=== PATIENT | male | born 1960 | race Caucasian/White ===

== ENCOUNTER → 2019-02-10 17:52 | Outpatient (CLI) | payer MEDICARE, OTHER, SELFPAY ==
--- NOTE | 2019-02-10 18:54 | XR_ITS ---
PROCEDURE: XR CHEST 2V CLINICAL HISTORY: r/o TB COMPARISON: No exams were available for comparison FINDINGS: The cardiomediastinal silhouette and pulmonary vascularity are within normal limits. The right lung apex is clipped on the exam despite repeating the study. Calcified nodes are present in the left hilum. No cavitating process is evident. Nodular opacity noted in the right lower lung zone measures approximately 18 mm. The remaining lungs are clear. Mild thoracic scoliosis convex left. IMPRESSION: Old granulomatous disease. No active cavitating process is evident. 18 mm nodular opacity right lower lung zone. Possible developing pulmonary nodule. Consider chest CT for further evaluation Dictated by: Brad Ochoa MD 02/10/2019 21:51 Signed by: <Electronically signed by Brad Ochoa MD in [place]> 02/10/2019 21:51
== END ==
PROVIDERS: PCP Emergency Medicine; Visit Provider Emergency Medicine
DX: Z11.1 Encounter for screening for respiratory tuberculosis (principal)
CPT/HCPCS: 71046

== ENCOUNTER 2019-09-03 10:04 | Inpatient (IN) ==
--- NOTE | 2019-09-03 09:39 | Emergency Department Note ---
ED Disposition Clinical Impression: Hyperglycemia Bilateral pneumonia Qualifiers: Pneumonia type: due to unspecified organism Lung location: unspecified part of lung Qualified Code(s): J18.9 - Pneumonia, unspecified organism Respiratory failure with hypoxia Qualifiers: Chronicity: acute Qualified Code(s): J96.01 - Acute respiratory failure with hypoxia Sepsis Qualifiers: Sepsis type: sepsis due to unspecified organism Sepsis acute organ dysfunction status: with acute organ dysfunction Severe sepsis acute organ dysfunction type: acute respiratory failure Acute respiratory failure type: with hypoxia Severe sepsis shock status: without septic shock Qualified Code(s): A41.9 - Sepsis, unspecified organism; R65.20 - Severe sepsis without septic shock; J96.01 - Acute respiratory failure with hypoxia Disposition: Admitted As Inpatient Condition on Discharge: Serious Referrals: Matthew Aponte MD [Primary Care Provider] - - Critical Care Critical Care Time: Yes Attestation: On , the high probability of a clinically significant, sudden or life threatening deterioration of the following system(s) required my full and direct attention, intervention and personal management. The time I documented below is in addition to time spent performing reported procedures but includes the following listed in this critical care notation. Vital system(s) involved:: Respiratory Failure My critical care processes included: Assessment & monitoring of V/S, Initial and Re-exams, Data Review/Interpretation, Coordinating Care, Medication Orders and management, Documentation Medical Decision Making - John Inquiry Pt receiving controlled substance: No Vital Signs: 09/03/19 09:39 09/03/19 10:35 09/03/19 11:15 Temperature 98.2 F 102.6 F H Temperature Source Oral Rectal Pulse Rate [Left Radial] 96 H 109 H 100 H Respiratory Rate 18 20 Blood Pressure [Left Arm] 106/76 L 129/78 Blood Pressure Mean [Left Arm] 86 95 Blood Pressure Source [Left Arm] Manual Cuff/ Doppler Automatic Cuff Blood Pressure Position [Left Arm] Sitting Sitting 02 Sat by Pulse Oximetry 90 L 92 L 92 L Oxygen Delivery Method Room Air Nasal Cannula Nasal Cannula Oxygen Flow Rate (LPM) 2 2 - Lab Data Lab Results 09/03/19 10:05: WBC 11.2 H, RBC 6.00, Hgb 18.7 H*, Hct 56.3 H, MCV 93.9, MCH 31.1, MCHC 33.1, RDW 12.7, Plt Count 206, MPV 14.1 H, Neut % (Auto) 87.7 H, Lymph % (Auto) 7.9 L, [place] % (Auto) 3.8, Eos % (Auto) 0.2, Baso % (Auto) 0.3, Neut # (Auto) 9.8 H, Lymph # (Auto) 0.9, [place] # (Auto) 0.4, Eos # (Auto) 0.0, Baso # (Auto) 0.0, Total Counted 100, Neutrophils % (Manual) 89 H, Lymphocytes % (Manual) 8 L, Monocytes % (Manual) 3, Platelet Estimate Normal, Giant Platelets 1+, RBC Morphology Normal 09/03/19 10:05: Sodium 143, Potassium 3.8, Chloride 102, Carbon Dioxide 27, Anion Gap 17.8 H, BUN 25 H, Creatinine 1.00, Estimated Creat Clear 97, Estimated GFR 76, Est GFR ( Amer) 93, Glucose 222 H, Calcium 9.6, Total Bilirubin 1.5 H, AST 67 H, ALT 37, Alkaline Phosphatase 222 H, Troponin I 0.03, Total Protein 9.1 H, Albumin 4.2, Globulin 4.9 H, Albumin/Globulin Ratio 0.9 L 09/03/19 10:05: Lactate 3.7 H 09/03/19 10:05: Urine Opiates Screen Negative, Urine Methadone Screen Negative, Ur Barbituates Screen Negative, Ur Phencyclidine Scrn Negative, Ur Amphetamines Screen Negative, U Benzodiazepines Scrn Negative, Urine Cocaine Screen Negative, U Marijuana (THC) Screen Negative 09/03/19 10:11: Urine Color Ariella, Urine Appearance Cloudy, Urine pH 5.5, Ur Spe cific [place] >= 1.030, Urine Protein 2+, Urine Glucose (UA) Negative, Urine Ketones 1+, Urine Blood 2+, Urine Nitrate Positive, Urine Bilirubin Negative, Urine Urobilinogen >=8.0, Ur Leukocyte Esterase Negative, Urine RBC 5-10, Urine WBC 10-20, Ur Squamous Epith Cells 3-5, Urine Bacteria 1+ 09/03/19 10:14: Specimen Source R radial, O2 % Room air, ABG pH 7.70 H*, ABG pCO2 16.4 L, ABG pO2 50.6 L, ABG HCO3 19.9 L, ABG Total CO2 20.4 L, ABG O2 Satur ation 92, ABG Base Excess -0.1, Brad Test Acceptable Result diagrams: 09/03/19 10:05 09/03/19 10:05 Orders (Tests/Meds): ED MEDICATIONS Generic Name Dose Route Start Last Admin Trade Name Freq PRN Reason Stop Dose Admin Ceftriaxone Sodium 1 gm/ 50 mls @ 100 mls/hr 09/03/19 11:15 09/03/19 11:39 Sodium Chloride IV 09/17/19 11:14 100 mls/hr Q24H PRETTY Administration Protocol Azithromycin 500 mg/ Sodium 250 mls @ 250 mls/hr 09/03/19 11:15 Chloride IV 09/17/19 11:14 Q24H PRETTY Protocol Sodium Chloride 3 ml 09/03/19 11:11 Sodium Chloride 3% 15ml Neb IH 10/03/19 11:10 ONCE PRN INDUCE SPUTUM COLLECTION Discontinued Medications Generic Name Dose Route Start Last Admin Trade Name Freq PRN Reason Stop Dose Admin Sodium Chloride 1,000 ml 09/03/19 11:06 09/03/19 11:39 Sod Chlor 0.9% 1000ml Bag IV 09/03/19 11:07 1,000 ml BOLUS ONE Administration ORDERS Category Date Time Status Flu A&B Antigens, Rapid [Rapid Influenza A&B Antigens] Lab 09/03/19 10:15 Ordered Stat SARS-CoV-2, ANNA Stat Lab 09/03/19 11:25 Received Troponin I Q3H Lab 09/03/19 13:15 Ordered Troponin I Q3H Lab 09/03/19 16:15 Ordered Upper Respiratory Panel, PCR Stat Lab 09/03/19 11:25 Received Blood Culture Stat Micro 09/03/19 10:11 Received Sputum Culture & Gram Stain Stat Micro 09/03/19 11:11 Ordered Urine Culture Stat Micro 09/03/19 10:11 Received - ECG Data Tracing #1 EKG interpreted by Micah Villa MD: Rhythm: sinus Rate: 100 [place]: normal Ectopy: none Conduction: normal ST Segment Changes: none T Wave Changes: none Q Waves: none No evidence of acute ischemia or injury Significant baseline wander - Physician Consults Physician Consulted: Fadi Time: 11:42 Reason -: Admission Comment/Response: Agrees to admit the patient to the hospital. We discussed the patient's clinical information, including history, exam, laboratory and radiology results and ED course. Per hospital procedure, I will write temporary bridge inpatient orders on the patient. Specific orders requested by the admitting physician: Admit to negative pressure room. Continue antibiotics. Low intensity sliding scale. Continue oxygen. General Adult HPI - General Chief complaint: Shortness of Breath/Dyspnea Stated complaint: SOA, CONFUSION Time Seen by Provider: 09/03/19 10:10 - History of Present Illness HPI narrative: The patient is brought in by ambulance from [facility] with report of shortness of breath and confusion. The patient is a poor historian. He is oriented only to person, not place or time on arrival. He denies any complaints, says that he feels okay. Denies shortness of breath or any pain. Denies cough or fever. Denies vomiting or diarrhea. Denies ever being a smoker. - Related Data Allergies Allergy/AdvReac Type Severity Reaction Status Date / Time Unable to Assess Allergy Verified 02/10/19 16:44 [facility] History - Hepatitis A Screen Attestation statement:: This patient has been screened for Hepatitis A risk factors. I have reviewed the patient's past medical history: Yes ROS Obtained: Yes All systems reviewed & no additional complaints Appears to be unreliable - Constitutional Constitutional: Denies fever(s) - Cardiovascular Cardiovascular: Denies chest pain - Respiratory Respiratory: No cough, No dyspnea - Gastrointestinal Gastrointestingal: Denies: abdominal pain, diarrhea, vomiting Physical Exam - General General appearance: alert Comment: Appears dyspneic, although denying shortness of breath. When asked to sit up for exam, he moans when trying to sit up and is unable to sit up on his own. - Head Head exam: atraumatic, normocephalic - Eye Eye exam: Present: normal appearance, EOMI - ENT ENT exam: Present: mucous membranes moist - Neck Neck exam: Present: normal inspection, trachea midline - Chest Chest inspection: Present: normal inspection, symmetric chest wall rise - Respiratory Respiratory exam: Present: other (Crackles). Absent: wheezes - Cardiovascular Cardiovascular exam: Present: regular rate, normal rhythm, normal heart sounds - Abdominal Exam Abdominal exam: Present: soft. Absent: distention, tenderness - Extremities Exam Extremities exam: Present: normal inspection - Neurological Exam Neurological exam: Present: alert, CN II-XII intact. Absent: oriented X3, motor sensory deficit - Psychiatric Psychiatric exam: Present: normal affect, normal mood - Skin Skin exam: Present: warm, dry
[2019-09-03 10:25] LABS: Microscopic, Urine URINE MICROSCOPIC (MICROSCOPIC)
[2019-09-03 10:27] LABS: Basophils % 0.3 % (0.1-2.0); Eosinophils % 0.2 % (0.1-12.0); Lymphocytes # 0.9 K/mm3 (0.7-4.5); Neutrophils # 9.8 K/mm3 (1.8-7.8); Red Cell Distribution Width 12.7 % (11.5-17.5); White Blood Count 11.2 K/mm3 (4.8-10.8)
[2019-09-03 10:31] LABS: Albumin Level 4.2 g/dl (3.5-5.0); Albumin/Globulin Ratio 0.9 (1.1-1.8); Anion Gap 17.8 mEq/L (5-15); Bilirubin,Total 1.5 mg/dl (0.2-1.3); Calcium 9.6 mg/dl (8.4-10.2); Globulin 4.9 g/dL (1.3-3.2); Total Protein,Serum 9.1 g/dl (6.3-8.2)
[2019-09-03 10:31] LABS: Blood, Urine 2+ (Negative); Glucose,Urine (UA) Negative (Negative); Ketones,Urine 1+ (Negative); Leukocyte Esterase,Urine Negative (Negative); PH,Urine 5.5 (5.0-8.5); Protein,Urine 2+ (Negative); Specific Gravity, Urine >= 1.030 (1.005-1.030); Urobilinogen,Urine >=8.0 EU/dl (0.2)
[2019-09-03 10:37] LABS: Benzodiazepines Screen,Urine Negative ng/ml (<200)
[2019-09-03 10:38] LABS: Amphetamine/Metha Screen,Urine Negative ng/ml (<1000)
[2019-09-03 10:39] LABS: Barbiturates Screen,Urine Negative ng/ml (<200); Methadone Screen,Urine Negative ng/ml (<300)
[2019-09-03 10:40] LABS: Cannabinoid Screen,Urine Negative ng/ml (<50); Cocaine Screen,Urine Negative ng/ml (<300)
[2019-09-03 10:41] LABS: Phencyclidine Screen,Urine Negative ng/ml (<25)
[2019-09-03 10:42] LABS: Appearance,Urine Cloudy (Clear); Bilirubin,Urine Negative (Negative); Color,Urine Amber (Yellow)
[2019-09-03 10:42] LABS: Opiate Screen,Urine Negative ng/ml (<300)
[2019-09-03 10:46] LABS: Hematocrit 56.3 % (42.0-52.0); Lymphocytes % 7.9 % (10-50); Mean Corpuscular HGB Conc 33.1 g/dL (31.8-35.4); Mean Corpuscular Volume 93.9 fl (80-94); Mean Platelet Volume 14.1 fl (7.4-10.4); Monocytes # 0.4 K/mm3 (0.1-1.0); Monocytes % 3.8 % (1.7-9.3); Neutrophils % 87.7 % (37.0-80.0); Platelet Count 206 K/mm3 (142-424)
[2019-09-03 10:51] LABS: Hemoglobin 18.7 g/dL (14.1-18.0)
[2019-09-03 10:55] LABS: Bacteria,Urine 1+ /lpf
[2019-09-03 11:13] LABS: Lymphocytes % 8 % (10-50); Monocytes % 3 % (2-9); Neutrophils % 89 % (42-76); RBC Morphology Normal; Total Cells Counted 100
[2019-09-03 11:19] LABS: ABG Base Excess -0.1 mmol/L (-2.4-2.3); ABG HCO3 19.9 mmhg (22.0-26.0); ABG Oxygen Saturation 92 % (90-100); ABG PO2 50.6 mmhg (80-100); ABG TCO2 20.4 mmhg (23-27)
[2019-09-03 11:20] LABS: Allen's Test ACCEPTABLE; Oxygen ROOM AIR %
[2019-09-03 11:21] LABS: ABG PCO2 16.4 mmhg (35.0-45.0)
[2019-09-03 11:35] LABS: Coronavirus 229E Not Detected (NotDetected); Coronavirus NL63 Not Detected (NotDetected); Coronavirus OC43 Not Detected (NotDetected); Coronovirus HKU1,PCR Not Detected (NotDetected)
--- NOTE | 2019-09-03 13:03 | Pharmacy Consult Notes ---
[facility] Pharmacy VTE Monitoring - Patient Demographics Admission date: 09/03/19 Report Date: 09/03/19 Time: 13:02 Allergies/Adverse Reactions: Patient Allergies Unable to Assess Allergy (Verified 02/10/19 16:44) Height: 1.85 m Weight: 86.183 kg Patient Problems: Current Active Problems Bilateral pneumonia (Acute) Respiratory failure with hypoxia (Acute) Hyperglycemia (Acute) Sepsis (Acute) - VTE Risk Labs: VTE Related Lab Results Hgb 18.7 g/dL (14.1-18.0) H* 09/03/19 10:05 Hct 56.3 % (42.0-52.0) H 09/03/19 10:05 Plt Count 206 K/mm3 (142-424) 09/03/19 10:05 BUN 25 mg/dl (9-20) H 09/03/19 10:05 Creatinine 1.00 mg/dl (0.66-1.25) 09/03/19 10:05 Estimated Creat Clear 97 mL/min (50-200) 09/03/19 10:05 Clinical Trial Participant: No - Prophylaxis VTE Prophylaxis Ordered?: Yes Types of VTE Prophylaxis: TEDS Knee High
--- NOTE | 2019-09-03 19:43 | History & Physical Report ---
*Admission Date: 09/03/19 *Chief complaint: sob *History of present illness: this pt was sent from longterm for eval -he patient is brought in by ambulance from [facility] with report of shortness of breath and confusion. The patient is a poor historian. He is oriented only to person, not place or time on arrival. He denies any complaints, says that he feels okay. Denies shortness of breath or any pain. Denies cough or fever. Denies vomiting or diarrhea. Denies ever being a smoker. pt was found to have fever and cap and was admitted for ivf and abx - [facility] History I have reviewed the patient's past medical history: Yes Medical History: Denies:: Diabetes Mellitus Type 1, Diabetes Mellitus Type 2 *Have you ever received a pneumonia vaccine?: No *Have you received a flu vaccine this season?: Yes - *Social History Smoking Status: Never smoker Alcohol Intake: never *Occupational Status:: disabled Housing: assisted living facility *Travel in the last 8 weeks: None Family Hx:: Unable to obtain Review of Systems - Review of Systems Review of systems:: pertinent systems reviewed and negative unless documented below - Constitutional Reports fever(s), Reports weakness - Eyes Denies change in vision - ENT Denies sore throat - *Cardiovascular Reports shortness of breath, Denies chest pain at rest - *Respiratory Reports cough, Denies coughing up blood - *Gastrointestinal Denies abdominal pain - *Genitourinary Denies blood in urine - *Musculoskeletal Denies joint pain, Denies limited joint movement - Integumentary/Breasts Denies rash - *Neurologic Denies seizure-like activity, Denies localized weakness, Denies headache(s), Denies tingling/numbness/burning sensations - Psychiatric Denies anxiety Meds Home Medications Medication Instructions Recorded Confirmed Type No Known Home Medications 09/03/19 09/03/19 History Allergies Allergy/AdvReac Type Severity Reaction Status Date / Time No Known Allergies Allergy Verified 09/03/19 13:35 Exam Vital signs and Labs for Last 24 Hours: Temp Pulse Resp BP Pulse Ox 98.0 F 74 18 120/63 93 L 09/03/19 13:10 09/03/19 16:00 09/03/19 16:00 09/03/19 16:00 09/03/19 16:00 Laboratory Results - last 24 hr 09/03/19 10:05: WBC 11.2 H, RBC 6.00, Hgb 18.7 H*, Hct 56.3 H, MCV 93.9, MCH 31.1, MCHC 33.1, RDW 12.7, Plt Count 206, MPV 14.1 H, Neut % (Auto) 87.7 H, Lymph % (Auto) 7.9 L, [place] % (Auto) 3.8, Eos % (Auto) 0.2, Baso % (Auto) 0.3, Neut # (Auto) 9.8 H, Lymph # (Auto) 0.9, [place] # (Auto) 0.4, Eos # (Auto) 0.0, Baso # (Auto) 0.0, Total Counted 100, Neutrophils % (Manual) 89 H, Lymphocytes % (Manual) 8 L, Monocytes % (Manual) 3, Platelet Estimate Normal, Giant Platelets 1+, RBC Morphology Normal 09/03/19 10:05: Sodium 143, Potassium 3.8, Chloride 102, Carbon Dioxide 27, Anion Gap 17.8 H, BUN 25 H, Creatinine 1.00, Estimated Creat Clear 97, Estimated GFR 76, Est GFR ( Amer) 93, Glucose 222 H, Calcium 9.6, Total Bilirubin 1.5 H, AST 67 H, ALT 37, Alkaline Phosphatase 222 H, Troponin I 0.03, Total Protein 9.1 H, Albumin 4.2, Globulin 4.9 H, Albumin/Globulin Ratio 0.9 L 09/03/19 10:05: Lactate 3.7 H 09/03/19 10:05: Urine Opiates Screen Negative, Urine Methadone Screen Negative, Ur Barbituates Screen Negative, Ur Phencyclidine Scrn Negative, Ur Amphetamines Screen Negative, U Benzodiazepines Scrn Negative, Urine Cocaine Screen Negative, U Marijuana (THC) Screen Negative 09/03/19 10:11: Urine Color Ariella, Urine Appearance Cloudy, Urine pH 5.5, Ur Specific [place] >= 1.030, Urine Protein 2+, Urine Glucose (UA) Negative, Urine Ketones 1+, Urine Blood 2+, Urine Nitrate Positive, Urine Bilirubin Negative, Urine Urobilinogen >=8.0, Ur Leukocyte Esterase Negative, Urine RBC 5-10, Urine WBC 10-20, Ur Squamous Epith Cells 3-5, Urine Bacteria 1+ 09/03/19 10:14: Specimen Source R radial, O2 % Room air, ABG pH 7.70 H*, ABG pCO2 16.4 L, ABG pO2 50.6 L, ABG HCO3 19.9 L, ABG Total CO2 20.4 L, ABG O2 Saturation 92, ABG Base Excess -0.1, Brad Test Acceptable 09/03/19 11:25: Chlamy pneumoniae PCR Not detected, Adenovirus (PCR) Not detected, B. pertussis DNA (PCR) Not detected, Coronavirus OC43 (PCR) Not detected, Coronavirus HKU1 (PCR) Not detected, Coronavirus 229E (PCR) Not detected, Coronavirus NL63 (PCR) Not detected, Human Metapneumovir PCR Not detected, Influenza A (H1) PCR Not detected, Influ A (H1N1/09) PCR Not detected, Influenza A (H3) PCR Not detected, Influenza Type A (PCR) Not detected, Influenza Type B (PCR) Not detected, M. pneumoniae (PCR) Not detected, Parainfluenza 1 (PCR) Not detected, Parainfluenza 2 (PCR) Not detected, Parainfluenza 3 (PCR) Not detected, Parainfluenza 4 (PCR) Not detected, RSV (PCR) Not detected, Entero/Rhino (PCR) Not detected 09/03/19 14:53: Lactate 1.2 09/03/19 16:44: POC Glucose 122 H I & O for Last 24 hours: Intake & Output 09/01/19 09/02/19 09/03/19 09/04/19 11:59 11:59 11:59 11:59 Intake Total 360 / 360 Balance 360 / 360 Weight 190 lb 202 lb 6.4 oz - Constitutional no acute distress - *Routine HEENT Exam Head: Present: normocephalic Eye: Present: EOMI, PERRL. Absent: conjunctival icterus ENT: Present: mucous membranes dry - *Routine Neck Exam Present: supple. Absent: JVD - *Routine Respiratory Exam Present: CTA bilaterally - *Routine Cardiovascular Exam Present: RRR, murmur - *Routine Abdominal Exam Present: soft - *Routine Extremities Exam Absent: full ROM - *Routine Skin Exam Present: intact - *Routine Neurological Exam Present: alert. Absent: CN II-XII intact - Routine Psychiatric Exam Present: normal affect Assessment and Plan (1) SIRS (systemic inflammatory response syndrome) Current visit: Yes Status: Acute Category: Medical Code(s): R65.10 - Systemic inflammatory response syndrome (SIRS) of non-infectious origin without acute organ dysfunction (2) Bilateral pneumonia Current visit: Yes Status: Acute Qualifiers: Pneumonia type: due to unspecified organism Lung location: unspecified part of lung Qualified Code(s): J18.9 - Pneumonia, unspecified organism Category: Medical Code(s): J18.9 - Pneumonia, unspecified organism (3) Respiratory failure with hypoxia Current visit: Yes Status: Acute Qualifiers: Chronicity: acute Qualified Code(s): J96.01 - Acute respiratory failure wit h hypoxia Category: Medical Code(s): J96.91 - Respiratory failure, unspecified with hypoxia (4) UTI (urinary tract infection) Current visit: Yes Status: Acute Qualifiers: Urinary tract infection type: site unspecified Hematuria presence: without hematuria Qualified Code(s): N39.0 - Urinary tract infection, site not specified Category: Medical Code(s): N39.0 - Urinary tract infection, site not specified
--- NOTE | 2019-09-04 09:46 | Progress Note ---
Internal Medicine - PN: Eloise *Date: 09/04/19 *Time: 09:43 Interval history: pt eating breakfast, asking when he can go home because he misses his brother. Exam Vital signs and Labs for Last 24 Hours: Temp Pulse Resp BP Pulse Ox 98.7 F 56 L 15 165/94 H 90 L 09/04/19 08:00 09/04/19 08:00 09/04/19 08:00 09/04/19 08:00 09/04/19 08:00 Laboratory Results - last 24 hr 09/03/19 10:05: WBC 11.2 H, RBC 6.00, Hgb 18.7 H*, Hct 56.3 H, MCV 93.9, MCH 31.1, MCHC 33.1, RDW 12.7, Plt Count 206, MPV 14.1 H, Neut % (Auto) 87.7 H, Lymph % (Auto) 7.9 L, [place] % (Auto) 3.8, Eos % (Auto) 0.2, Baso % (Auto) 0.3, Neut # (Auto) 9.8 H, Lymph # (Auto) 0.9, [place] # (Auto) 0.4, Eos # (Auto) 0.0, Baso # (Auto) 0.0, Total Counted 100, Neutrophils % (Manual) 89 H, Lymphocytes % (Manual) 8 L, Monocytes % (Manual) 3, Platelet Estimate Normal, Giant Platelets 1+, RBC Morphology Normal 09/03/19 10:05: Sodium 143, Potassium 3.8, Chloride 102, Carbon Dioxide 27, Anion Gap 17.8 H, BUN 25 H, Creatinine 1.00, Estimated Creat Clear 97, Estimated GFR 76, Est GFR ( Amer) 93, Glucose 222 H, Calcium 9.6, Total Bilirubin 1.5 H, AST 67 H, ALT 37, Alkaline Phosphatase 222 H, Troponin I 0.03, Total Protein 9.1 H, Albumin 4.2, Globulin 4.9 H, Albumin/Globulin Ratio 0.9 L 09/03/19 10:05: Lactate 3.7 H 09/03/19 10:05: Urine Opiates Screen Negative, Urine Methadone Screen Negative, Ur Barbituates Screen Negative, Ur Phencyclidine Scrn Negative, Ur Amphetamines Screen Negative, U Benzodiazepines Scrn Negative, Urine Cocaine Screen Negative, U Marijuana (THC) Screen Negative 09/03/19 10:11: Urine Color Ariella, Urine Appearance Cloudy, Urine pH 5.5, Ur Specific [place] >= 1.030, Urine Protein 2+, Urine Glucose (UA) Negative, Urine Ketones 1+, Urine Blood 2+, Urine Nitrate Positive, Urine Bilirubin Negative, Urine Urobilinogen >=8.0, Ur Leukocyte Esterase Negative, Urine RBC 5-10, Urine WBC 10-20, Ur Squamous Epith Cells 3-5, Urine Bacteria 1+ 09/03/19 10:14: Specimen Source R radial, O2 % Room air, ABG pH 7.70 H*, ABG pCO2 16.4 L, ABG pO2 50.6 L, ABG HCO3 19.9 L, ABG Total CO2 20.4 L, ABG O2 Saturation 92, ABG Base Excess -0.1, Brad Test Acceptable 09/03/19 11:25: Chlamy pneumoniae PCR Not detected, Adenovirus (PCR) Not detected, B. pertussis DNA (PCR) Not detected, Coronavirus OC43 (PCR) Not detected, Coronavirus HKU1 (PCR) Not detected, Coronavirus 229E (PCR) Not detected, Coronavirus NL63 (PCR) Not detected, Human Metapneumovir PCR Not detected, Influenza A (H1) PCR Not detected, Influ A (H1N1/09) PCR Not detected, Influenza A (H3) PCR Not detected, Influenza Type A (PCR) Not detected, Influenza Type B (PCR) Not detected, M. pneumoniae (PCR) Not detected, Parainfluenza 1 (PCR) Not detected, Parainfluenza 2 (PCR) Not detected, Parainfluenza 3 (PCR) Not detected, Parainfluenza 4 (PCR) Not detected, RSV (PCR) Not detected, Entero/Rhino (PCR) Not detected 09/03/19 14:53: Lactate 1.2 09/03/19 16:44: POC Glucose 122 H 09/03/19 21:02: POC Glucose 154 H I & O for Last 24 hours: Intake & Output 09/01/19 09/02/19 09/03/19 09/04/19 11:59 11:59 11:59 11:59 Intake Total 1680 / 1680 Output Total 100 / 100 Balance 1580 / 1580 Weight 190 lb 202 lb 6.4 oz - Constitutional no acute distress - *Routine HEENT Exam Head: Present: normocephalic Eye: Present: PERRL ENT: Present: mucous membranes moist - *Routine Neck Exam Present: supple. Absent: lymphadenopathy - *Routine Respiratory Exam Present: decreased breath sounds, rhonchi - *Routine Cardiovascular Exam Present: RRR - *Routine Abdominal Exam Present: soft, normoactive bowel sounds. Absent: tenderness - *Routine Extremities Exam Present: normal capillary refill. Absent: cyanosis, clubbing, edema - *Routine Skin Exam Present: warm. Absent: rash - *Routine Neurological Exam Present: alert, oriented X3 - Routine Psychiatric Exam Present: normal affect Assessment and Plan (1) Bilateral pneumonia Current visit: Yes Status: Acute Qualifiers: Pneumonia type: due to unspecified organism Lung location: unspecified part of lung Qualified Code(s): J18.9 - Pneumonia, unspecified organism Category: Medical Code(s): J18.9 - Pneumonia, unspecified organism - Assessment and plan all Dx Assessment and Plan for all problems:: rounded with dr bermudez all orders per lara wait covid-19 results iv antibiotics
--- NOTE | 2019-09-04 21:21 | Electrocardiograph Report ---
APPROVED REPORT Exam: Resting ECG HR:100 bpm ECG Measurements Heart Rate 100 AXES [place] 130 P 20 QRSd 88 QRS -21 QT 392 T-19 QTc 505 <Conclusion> Normal sinus rhythm Nonspecific ST abnormality Prolonged QT Abnormal ECG Electronically signed by : Chu Bradley, 09/04/2019 21:20:42
--- NOTE | 2019-09-05 09:41 | Progress Note ---
Internal Medicine - PN: Subj *Date: 09/06/19 *Time: 08:16 Interval history: doing better - neg covid-19 - Exam Vital signs and Labs for Last 24 Hours: Temp Pulse Resp BP Pulse Ox 98.0 F 71 16 99/59 L 91 L 09/05/19 08:00 09/05/19 08:00 09/05/19 08:00 09/05/19 08:00 09/05/19 08:00 Laboratory Results - last 24 hr 09/03/19 11:25: COVID-19 (ANNA) Not detected 09/04/19 05:32: POC Glucose 116 H 09/04/19 11:12: POC Glucose 111 H 09/04/19 16:16: POC Glucose 93 09/04/19 19:57: POC Glucose 96 09/05/19 05:52: POC Glucose 112 H I & O for Last 24 hours: Intake & Output 09/02/19 09/03/19 09/04/19 09/05/19 11:59 11:59 11:59 11:59 Intake Total 1680 / 1680 3167 / 3167 Output Total 100 / 100 Balance 1580 / 1580 3167 / 3167 Weight 190 lb 202 lb 6.4 oz 205 lb Microbiology Reports for the Last 24 Hours: Microbiology 09/03/19 10:11 Urine,Catheterized Urine Culture - Preliminary NO GROWTH AFTER 24 HOURS - Constitutional no acute distress - *Routine HEENT Exam Head: Present: normocephalic Eye: Present: EOMI, PERRL ENT: Present: mucous membranes dry - *Routine Neck Exam Present: supple - *Routine Respiratory Exam Present: CTA bilaterally - *Routine Cardiovascular Exam Present: RRR, murmur - *Routine Abdominal Exam Present: soft - *Routine Extremities Exam Present: pulses intact - *Routine Skin Exam Present: intact - *Routine Neurological Exam Present: alert, CN II-XII intact - Routine Psychiatric Exam Present: normal affect Assessment and Plan (1) SIRS (systemic inflammatory response syndrome) Current visit: Yes Status: Acute Category: Medical Code(s): R65.10 - Systemic inflammatory response syndrome (SIRS) of non-infectious origin without acute organ dysfunction (2) Bilateral pneumonia Current visit: Yes Status: Acute Qualifiers: Pneumonia type: due to unspecified organism Lung location: unspecified part of lung Qualified Code(s): J18.9 - Pneumonia, unspecified organism Category: Medical Code(s): J18.9 - Pneumonia, unspecified organism (3) Respiratory failure with hypoxia Current visit: Yes Status: Acute Qualifiers: Chronicity: acute Qualified Code(s): J96.01 - Acute respiratory failure with hypoxia Category: Medical Code(s): J96.91 - Respiratory failure, unspecified with hypoxia (4) UTI (urinary tract infection) Current visit: Yes Status: Acute Qualifiers: Urinary tract infection type: site unspecified Hematuria presence: without hematuria Qualified Code(s): N39.0 - Urinary tract infection, site not specified Category: Medical Code(s): N39.0 - Urinary tract infection, site not specified
[2019-09-05 11:43] LABS: Basophils % 0.3 % (0.1-2.0); Eosinophils % 0.2 % (0.1-12.0); Hematocrit 46.5 % (42.0-52.0); Hemoglobin 15.3 g/dL (14.1-18.0); Lymphocytes # 0.8 K/mm3 (0.7-4.5); Lymphocytes % 5.5 % (10-50); Mean Corpuscular Volume 94.3 fl (80-94); Mean Platelet Volume 13.5 fl (7.4-10.4); Monocytes # 0.8 K/mm3 (0.1-1.0); Monocytes % 5.6 % (1.7-9.3); Neutrophils % 88.4 % (37.0-80.0); Platelet Count 185 K/mm3 (142-424); Red Blood Count 4.92 M/mm3 (4.60-6.20); Red Cell Distribution Width 12.9 % (11.5-17.5); White Blood Count 13.6 K/mm3 (4.8-10.8)
[2019-09-05 11:46] LABS: Anion Gap 8.2 mEq/L (5-15)
[2019-09-05 11:57] LABS: Calcium 7.9 mg/dl (8.4-10.2)
[2019-09-05 14:16] LABS: Lymphocytes % 5 % (10-50); Monocytes % 4 % (2-9); Neutrophils % 91 % (42-76); RBC Morphology Normal; Total Cells Counted 100
--- NOTE | 2019-09-06 09:02 | Progress Note ---
Internal Medicine - PN: Subj *Date: 09/07/19 *Time: 07:43 Interval history: doing better but on o2 - pt with no specific c/o Exam Vital signs and Labs for Last 24 Hours: Temp Pulse Resp BP Pulse Ox 99.4 F 83 28 H 124/41 L 83 L 09/06/19 07:43 09/06/19 07:43 09/06/19 07:43 09/06/19 07:43 09/06/19 07:43 Laboratory Results - last 24 hr 09/05/19 11:05: WBC 13.6 H, RBC 4.92, Hgb 15.3, Hct 46.5, MCV 94.3 H, MCH 31.2, MCHC 33.0, RDW 12.9, Plt Count 185, MPV 13.5 H, Neut % (Auto) 88.4 H, Lymph % (Auto) 5.5 L, [place] % (Auto) 5.6, Eos % (Auto) 0.2, Baso % (Auto) 0.3, Neut # (Auto) 12.0 H, Lymph # (Auto) 0.8, [place] # (Auto) 0.8, Eos # (Auto) 0.0, Baso # (Auto) 0.0, Total Counted 100, Neutrophils % (Manual) 91 H, Lymphocytes % (Manual) 5 L, Monocytes % (Manual) 4, Platelet Estimate Normal, RBC Morphology Normal 09/05/19 11:05: Sodium 141, Potassium 3.2 L, Chloride 107, Carbon Dioxide 29, Anion Gap 8.2, BUN 11 D, Creatinine 0.50 L D, Estimated Creat Clear 209, Estimated GFR 170, Est GFR ( Amer) 206 D, Glucose 170 H, Calcium 7.9 L D 09/05/19 11:48: POC Glucose 188 H 09/05/19 16:47: POC Glucose 92 09/05/19 21:08: POC Glucose 184 H 09/06/19 05:58: POC Glucose 114 H I & O for Last 24 hours: Intake & Output 09/03/19 09/04/19 09/05/19 09/06/19 11:59 11:59 11:59 11:59 Intake Total 1680 / 1680 3167 / 3167 1656 / 1656 Output Total 100 / 100 300 / 300 Balance 1580 / 1580 3167 / 3167 1356 / 1356 Weight 190 lb 202 lb 6.4 oz 205 lb 212 lb 3 oz Microbiology Reports for the Last 24 Hours: Microbiology 09/03/19 10:11 Blood Blood Culture - Preliminary NO GROWTH AFTER 48 HOURS 09/03/19 10:11 Urine,Catheterized Urine Culture - Final NO GROWTH AFTER 48 HOURS 09/03/19 10:11 Blood Blood Culture - Preliminary NO GROWTH AFTER 48 HOURS - Constitutional no acute distress - *Routine HEENT Exam Head: Present: normocephalic Eye: Present: EOMI, PERRL ENT: Present: mucous membranes dry - *Routine Neck Exam Present: supple. Absent: JVD - *Routine Respiratory Exam Present: decreased breath sounds - *Routine Cardiovascular Exam Present: RRR - *Routine Abdominal Exam Present: soft - *Routine Extremities Exam Present: full ROM - *Routine Skin Exam Present: intact - *Routine Neurological Exam Present: alert - Routine Psychiatric Exam Absent: depressed Assessment and Plan (1) SIRS (systemic inflammatory response syndrome) Current visit: Yes Status: Acute Category: Medical Code(s): R65.10 - Systemic inflammatory response syndrome (SIRS) of non-infectious origin without acute organ dysfunction (2) Bilateral pneumonia Current visit: Yes Status: Acute Qualifiers: Pneumonia type: due to unspecified organism Lung location: unspecified part of lung Qualified Code(s): J18.9 - Pneumonia, unspecified organism Category: Medical Code(s): J18.9 - Pneumonia, unspecified organism (3) Respiratory failure with hypoxia Current visit: Yes Status: Acute Qualifiers: Chronicity: acute Qualified Code(s): J96.01 - Acute respiratory failure with hypoxia Category: Medical Code(s): J96.91 - Respiratory failure, unspecified with hypoxia (4) UTI (urinary tract infection) Current visit: Yes Status: Acute Qualifiers: Urinary tract infection type: site unspecified Hematuria presence: without hematuria Qualified Code(s): N39.0 - Urinary tract infection, site not specified Category: Medical Code(s): N39.0 - Urinary tract infection, site not specified
--- NOTE | 2019-09-06 10:07 | Progress Note ---
Internal Medicine - PN: Subj *Date: 09/06/19 *Time: 10:07 Exam Vital signs and Labs for Last 24 Hours: Temp Pulse Resp BP Pulse Ox 99.4 F 78 28 H 124/41 L 83 L 09/06/19 07:43 09/06/19 09:58 09/06/19 07:43 09/06/19 07:43 09/06/19 07:43 Laboratory Results - last 24 hr 09/05/19 11:05: WBC 13.6 H, RBC 4.92, Hgb 15.3, Hct 46.5, MCV 94.3 H, MCH 31.2, MCHC 33.0, RDW 12.9, Plt Count 185, MPV 13.5 H, Neut % (Auto) 88.4 H, Lymph % (Auto) 5.5 L, [place] % (Auto) 5.6, Eos % (Auto) 0.2, Baso % (Auto) 0.3, Neut # (Auto) 12.0 H, Lymph # (Auto) 0.8, [place] # (Auto) 0.8, Eos # (Auto) 0.0, Baso # (Auto) 0.0, Total Counted 100, Neutrophils % (Manual) 91 H, Lymphocytes % (Manual) 5 L, Monocytes % (Manual) 4, Platelet Estimate Normal, RBC Morphology Normal 09/05/19 11:05: Sodium 141, Potassium 3.2 L, Chloride 107, Carbon Dioxide 29, Anion Gap 8.2, BUN 11 D, Creatinine 0.50 L D, Estimated Creat Clear 209, Estimated GFR 170, Est GFR ( Amer) 206 D, Glucose 170 H, Calcium 7.9 L D 09/05/19 11:48: POC Glucose 188 H 09/05/19 16:47: POC Glucose 92 09/05/19 21:08: POC Glucose 184 H 09/06/19 05:58: POC Glucose 114 H I & O for Last 24 hours: Intake & Output 09/03/19 09/04/19 09/05/19 09/06/19 23:59 23:59 23:59 23:59 Intake Total 360 / 360 2826 / 2826 2568 / 2568 869 / 869 Output Total 100 / 100 300 / 300 Balance 360 / 360 2726 / 2726 2568 / 2568 569 / 569 Weight 91.807 kg 92.986 kg 96.247 kg Microbiology Reports for the Last 24 Hours: Microbiology 09/03/19 10:11 Blood Blood Culture - Preliminary NO GROWTH AFTER 48 HOURS 09/03/19 10:11 Urine,Catheterized Urine Culture - Final NO GROWTH AFTER 48 HOURS 09/03/19 10:11 Blood Blood Culture - Preliminary NO GROWTH AFTER 48 HOURS Assessment and Plan (1) SIRS (systemic inflammatory response syndrome) Current visit: Yes Status: Acute Category: Medical Code(s): R65.10 - Systemic inflammatory response syndrome (SIRS) of non-infectious origin without acute organ dysfunction (2) Bilateral pneumonia Current visit: Yes Status: Acute Qualifiers: Pneumonia type: due to unspecified organism Lung location: unspecified part of lung Qualified Code(s): J18.9 - Pneumonia, unspecified organism Category: Medical Code(s): J18.9 - Pneumonia, unspecified organism (3) Respiratory failure with hypoxia Current visit: Yes Status: Acute Qualifiers: Chronicity: acute Qualified Code(s): J96.01 - Acute respiratory failure with hypoxia Category: Medical Code(s): J96.91 - Respiratory failure, unspecified with hypoxia (4) UTI (urinary tract infection) Current visit: Yes Status: Acute Qualifiers: Urinary tract infection type: site unspecified Hematuria presence: without hematuria Qualified Code(s): N39.0 - Urinary tract infection, site not specified Category: Medical Code(s): N39.0 - Urinary tract infection, site not specified The patient's infection will respond to the chosen ABx?: Yes Is the patient receiving the right drug, dose, and route?: Yes Could a more targeted ABx be ordered?: No
--- NOTE | 2019-09-07 08:49 | Progress Note ---
Internal Medicine - PN: Subj *Date: 09/07/19 *Time: 08:44 Interval history: Patient sitting up in chair states he feels a okay Exam Vital signs and Labs for Last 24 Hours: Temp Pulse Resp BP Pulse Ox 97.8 F 105 H 18 139/75 90 L 09/07/19 08:00 09/07/19 08:00 09/07/19 08:00 09/07/19 08:00 09/07/19 08:00 Laboratory Results - last 24 hr 09/06/19 11:21: POC Glucose 178 H 09/06/19 16:01: POC Glucose 251 H 09/06/19 21:35: POC Glucose 263 H 09/07/19 05:47: POC Glucose 209 H I & O for Last 24 hours: Intake & Output 09/04/19 09/05/19 09/06/19 09/07/19 11:59 11:59 11:59 11:59 Intake Total 1680 / 1680 3167 / 3167 1776 / 1776 2084 / 2084 Output Total 100 / 100 300 / 300 350 / 350 Balance 1580 / 1580 3167 / 3167 1476 / 1476 1734 / 1734 Weight 202 lb 6.4 oz 205 lb 212 lb 3 oz 209 lb 10.554 oz - Constitutional no acute distress, chronically ill appearing - *Routine HEENT Exam Head: Present: normocephalic Eye: Present: PERRL ENT: Present: mucous membranes moist - *Routine Neck Exam Present: supple. Absent: lymphadenopathy - *Routine Respiratory Exam Present: rhonchi - *Routine Cardiovascular Exam Present: RRR - *Routine Abdominal Exam Present: soft, normoactive bowel sounds. Absent: tenderness - *Routine Extremities Exam Present: full ROM, normal capillary refill. Absent: cyanosis, clubbing, edema - *Routine Skin Exam Present: warm. Absent: rash - *Routine Neurological Exam Present: alert - Routine Psychiatric Exam Present: normal affect Assessment and Plan (1) SIRS (systemic inflammatory response syndrome) Current visit: Yes Status: Acute Category: Medical Code(s): R65.10 - Systemic inflammatory response syndrome (SIRS) of non-infectious origin without acute organ dysfunction (2) Bilateral pneumonia Current visit: Yes Status: Acute Qualifiers: Pneumonia type: due to unspecified organism Lung location: unspecified part of lung Qualified Code(s): J18.9 - Pneumonia, unspecified organism Category: Medical Code(s): J18.9 - Pneumonia, unspecified organism (3) Respiratory failure with hypoxia Current visit: Yes Status: Acute Qualifiers: Chronicity: acute Qualified Code(s): J96.01 - Acute respiratory failure with hypoxia Category: Medical Code(s): J96.91 - Respiratory failure, unspecified with hypoxia (4) UTI (urinary tract infection) Current visit: Yes Status: Acute Qualifiers: Urinary tract infection type: site unspecified Hematuria presence: without hematuria Qualified Code(s): N39.0 - Urinary tract infection, site not specified Category: Medical Code(s): N39.0 - Urinary tract infection, site not specified - Assessment and plan all Dx Assessment and Plan for all problems:: Try to wean off O2 and possibly transfer back to [facility] Look at possible rehab to help with strength patient has unsteady gait
[2019-09-07 09:33] LABS: Basophils % 0.1 % (0.1-2.0); Eosinophils % 0.1 % (0.1-12.0); Hematocrit 46.1 % (42.0-52.0); Hemoglobin 15.1 g/dL (14.1-18.0); Lymphocytes # 0.7 K/mm3 (0.7-4.5); Lymphocytes % 4.4 % (10-50); Mean Corpuscular HGB Conc 32.7 g/dL (31.8-35.4); Mean Corpuscular Volume 92.7 fl (80-94); Mean Platelet Volume 12.9 fl (7.4-10.4); Monocytes # 0.6 K/mm3 (0.1-1.0); Monocytes % 3.5 % (1.7-9.3); Neutrophils # 14.4 K/mm3 (1.8-7.8); Neutrophils % 91.8 % (37.0-80.0); Platelet Count 261 K/mm3 (142-424); Red Blood Count 4.97 M/mm3 (4.60-6.20); White Blood Count 15.6 K/mm3 (4.8-10.8)
[2019-09-07 09:37] LABS: Anion Gap 14.9 mEq/L (5-15); Calcium 7.7 mg/dl (8.4-10.2)
[2019-09-07 12:05] LABS: Monocytes % 3 % (2-9); RBC Morphology Normal; Total Cells Counted 100
[2019-09-07 12:09] LABS: Lymphocytes % 6 % (10-50); Neutrophils % 91 % (42-76)
--- NOTE | 2019-09-08 09:23 | Discharge Summary ---
General - General Admission date:: 09/03/19 Discharge date: 09/08/19 HPI HPI: 58-year-old male patient lying in bed oxygen on at 2 L per nasal cannula. Discussed discharge to extended care facility for PT/OT today, explained eventually may be able to return to [facility] this pt was sent from [facility] for eval -he patient is brought in by ambulance from [facility] with report of shortness of breath and confusion. The patient is a poor historian. He is oriented only to person, not place or time on arrival. He denies any complaints, says that he feels okay. Denies shortness of breath or any pain. Denies cough or fever. Denies vomiting or diarrhea. Denies ever being a smoker. pt was found to have fever and cap and was admitted for ivf and abx - Hospital Course Hospital Course: this pt was sent from [facility] for eval -he patient is brought in by ambulance from [facility] with report of shortness of breath and confusion. The patient is a poor historian. He is oriented only to person, not place or time on arrival. He denies any complaints, says that he feels okay. Denies shortness of breath or any pain. Denies cough or fever. Denies vomiting or diarrhea. Denies ever being a smoker. pt was found to have fever and cap and was admitted for ivf and abx (Per Dr. Aponte) 09/03/[address]: IMPRESSION: No acute intracranial finding Dictated by: Dr. Ochoa 09/03/19 CXR: IMPRESSION: Patchy bilateral areas of alveolar opacification consistent with bilateral pneumonia and could be viral or bacterial Dictated by: Dr. Ochoa, During his stay he has had negative blood cultures x2 and negative urine culture. Respiratory viral panel has been negative as well as COVID-19, potassium was 2.9, he did receive 20 mg potassium IV. He is currently on oxygen at 2 L per nasal cannula, he has been checked on room air sats were mid to high 80s on 2 L per NC he is 93 to 95% oxygen sat He will be discharged to an extended care facility with PT/OT, oxygen, and PO antibiotics Objective Vital signs: Temp Pulse Resp BP Pulse Ox 97.5 F L 91 H 18 141/82 H 87 L 09/08/19 07:43 09/08/19 07:43 09/08/19 07:43 09/08/19 07:43 09/08/19 07:43 no acute distress - *Routine HEENT Exam Head: Present: normocephalic ENT: Present: mucous membranes moist - *Routine Neck Exam Present: supple, full ROM. Absent: JVD - *Routine Respiratory Exam Present: rhonchi. Absent: accessory muscle use - *Routine Cardiovascular Exam Present: RRR - *Routine Abdominal Exam Present: soft, normoactive bowel sounds. Absent: tenderness, firm - *Routine Extremities Exam Present: full ROM. Absent: cyanosis, calf tenderness - *Routine Skin Exam Present: intact, warm. Absent: jaundice - *Routine Neurological Exam Present: alert - Routine Psychiatric Exam Present: normal affect Results Labs on day of discharge: Labs from last 24 hours 09/07/19 09/07/19 09/07/19 16:06 11:46 09:14 WBC RBC Hgb Hct MCV MCH MCHC RDW Plt Count MPV Neut % (Auto) Lymph % (Auto) [place] % (Auto) Eos % (Auto) Baso % (Auto) Neut # (Auto) Lymph # (Auto) [place] # (Auto) Eos # (Auto) Baso # (Auto) Total Counted Neutrophils % (Manual) Lymphocytes % (Manual) Monocytes % (Manual) Platelet Estimate Giant Platelets RBC Morphology Sodium 142 Potassium 2.9 L* Chloride 103 Carbon Dioxide 27 Anion Gap 14.9 BUN 11 Creatinine 0.50 L Estimated Creat Clear 214 Estimated GFR 170 Est GFR ( Amer) 206 Glucose 239 H POC Glucose 307 H* 206 H Calcium 7.7 L 09/07/19 09:14 WBC 15.6 H RBC 4.97 Hgb 15.1 Hct 46.1 MCV 92.7 MCH 30.3 MCHC 32.7 RDW 13.0 Plt Count 261 D MPV 12.9 H Neut % (Auto) 91.8 H Lymph % (Auto) 4.4 L [place] % (Auto) 3.5 Eos % (Auto) 0.1 Baso % (Auto) 0.1 Neut # (Auto) 14.4 H Lymph # (Auto) 0.7 [place] # (Auto) 0.6 Eos # (Auto) 0.0 Baso # (Auto) 0.0 Total Counted 100 Neutrophils % (Manual) 91 H Lymphocytes % (Manual) 6 L Monocytes % (Manual) 3 Platelet Estimate Normal Giant Platelets 1+ RBC Morphology Normal Sodium Potassium Chloride Carbon Dioxide Anion Gap BUN Creatinine Estimated Creat Clear Estimated GFR Est GFR ( Amer) Glucose POC Glucose Calcium Preliminary micro results at discharge 09/03/19 10:11 Blood Culture - Preliminary Blood NO GROWTH AFTER 48 HOURS 09/03/19 10:11 Blood Culture - Preliminary Blood NO GROWTH AFTER 48 HOURS - Additional Comments Rounded with Dr. Aponte, all orders per Dr. Aponte 1. We will discharge to [facility] with PT OT and oxygen 2. Omnicef 300mg PO twice daily x 5 days DS: Diagnosis - Discharge Diagnosis (1) SIRS (systemic inflammatory response syndrome) Status: Acute (2) Bilateral pneumonia Status: Acute (3) Respiratory failure with hypoxia Status: Acute (4) UTI (urinary tract infection) Status: Acute Discharge Plan - Patient Discharge Instructions ACTIVITY: Continue current activity DIET: continue same diet Patient Instructions: DI for Pneumonia -- Adult, DI for Sepsis -- Adult, DI for Respiratory Failure - Follow up Plan Follow up with: Shivam Stover APRN [Advanced Practice Nurse] - 2 weeks Disposition: Xfer [facility] Home Medications: Home Medications Medication Instructions Recorded Confirmed Type Cefdinir [Omnicef 300mg Capsule] 300 mg PO BID 5 Days #10 cap 09/08/19 Rx Prescriptions/Medication Reconciliation: New Cefdinir [Omnicef 300mg Capsule] 300 mg PO BID 5 Days #10 cap - Problem Reconciliation Problems Reviewed?: Yes
== END 2019-09-08 10:56 | disposition home or self-care (01) | DRG 193 ==
LOC: ER 10:04 → ICU 11:53 → 2ND 09-05 10:35
PROVIDERS: ADMIT Emergency Medicine; ATTEND Emergency Medicine
CPT/HCPCS: 36415; 70450; 71010; 71045; 80048; 80053; 80305; 81001; 82803; 82962; 83605; 84484; 85007; 85025; 87040; 87086; 87486; 87581; 87633; 87635; 87798; 93005; 94640; 94761; 96365; 96367; 97116; 97161; 99285; J0456; U0002

== ENCOUNTER → 2019-10-06 14:08 | Outpatient (CLI) | payer MEDICARE, OTHER, SELFPAY ==
--- NOTE | 2019-10-06 14:23 | XR_ITS ---
PROCEDURE: XR LUMBAR SPINE MIN 4V CLINICAL INDICATION: weakness COMPARISON: No exams were available for comparison FINDINGS: There is mild lumbar scoliosis convex left. Multilevel degenerative disc disease is present from L1-S1. This is most severe at L5-S1. There is 9 mm anterolisthesis of L5. Multiple endplate osteophytes are noted. The SI joints are unremarkable. There is 3 mm retrolisthesis of L2 on L3 and L3 on L4 there is mild facet arthritic changes at L5-S1. Bowel gas pattern is nonspecific with gas-filled loops of small and large bowel in a mild amount of retained colonic feces. IMPRESSION: Mild levoscoliosis with degenerative changes as detailed above, no acute finding Dictated by: Brad Ochoa MD 10/06/2019 15:12 Electronically signed by Brad Ochoa MD in [place] 10/06/2019 15:12
--- NOTE | 2019-10-06 14:23 | XR_ITS ---
PROCEDURE: XR TIBIA FIBULA RT 2V CLINICAL INDICATION: weakness COMPARISON: No exams were available for comparison FINDINGS: No acute fracture or dislocation is evident. There are mild osteoarthritic changes at the knee joint. There are numerous oval calcific densities posterior to the medial compartment consistent with synovial osteochondromas. 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
--- NOTE | 2019-10-06 14:23 | XR_ITS ---
PROCEDURE: XR PELVIS 1-2V CLINICAL INDICATION: weakness COMPARISON: No exams were available for comparison TECHNIQUE: XR Pelvis AP View FINDINGS: No fracture or dislocation is evident. There are mild osteoarthritic changes in both hips. There is an old right inferior pubic ramus fracture. No lytic or blastic change. IMPRESSION: No acute findings. Dictated by: Brad Ochoa MD 10/06/2019 15:09 Electronically signed by Brad Ochoa MD in [place] 10/06/2019 15:09
== END ==
PROVIDERS: PCP Emergency Medicine; Visit Provider Emergency Medicine
DX: R53.1 Weakness (principal); Z74.09 Other reduced mobility
CPT/HCPCS: 72110; 72170; 73590

== ENCOUNTER → 2019-10-14 12:55 | Outpatient (CLI) | payer MEDICARE, MEDICAID, SELFPAY ==
--- NOTE | 2019-10-14 13:19 | XR_ITS ---
PROCEDURE: XR KNEE LT 4V CLINICAL INDICATION: left knee pain COMPARISON: XR TIBIA FIBULA RT 2V from 10/06/2019 FINDINGS: No fracture or dislocation. No lytic or blastic change. There is normal mineralization. There are mild osteoarthritic changes involving all 3 compartments. There is a small calcific density along the proximal and medial aspect of the medial tibial plateau and could represent an old avulsion injury. Other findings: IMPRESSION: Mild osteoarthritis with possible old small avulsion at the medial tibial plateau Dictated by: Brad Ochoa MD 10/14/2019 18:41 Electronically signed by Brad Ochoa MD in [place] 10/14/2019 18:41
--- NOTE | 2019-10-14 13:19 | XR_ITS ---
PROCEDURE: XR KNEE RT 4V CLINICAL INDICATION: right knee pain COMPARISON: XR TIBIA FIBULA RT 2V from 10/06/2019 FINDINGS: There are numerous calcific densities in the popliteal fossa medially consistent with synovial osteochondromas. There are mild osteoarthritic changes of the patellofemoral joint, medial compartment and lateral compartment. No fracture or dislocation. IMPRESSION: The osteoarthritis with synovial osteochondromatosis Dictated by: Brad Ochoa MD 10/14/2019 18:30 Electronically signed by Brad Ochoa MD in [place] 10/14/2019 18:30
== END ==
PROVIDERS: PCP Emergency Medicine; Visit Provider Orthopaedic Surgery
DX: M25.562 Pain in left knee (principal); M25.561 Pain in right knee
CPT/HCPCS: 73564

== ENCOUNTER 2019-11-10 09:02 | Inpatient (IN) | payer MEDICARE, MEDICAID, SELFPAY ==
[2019-11-10] VITALS (11 sets, daily range): BP systolic 107–133; BP diastolic 65–88; PULSE 98–122; RESP 18–20; TEMP 36.3–36.4; O2SAT 93–98; BMI 24.4; BMI 25.0
--- NOTE | 2019-11-10 09:03 | CT_ITS ---
PROCEDURE: CT HEAD/BRAIN WO CON CLINICAL INDICATION: weakness, pupils unequal Altered mental status, altered level of consciousness, confusion, disorientation COMPARISON: CT HEAD/BRAIN WO CON from 09/03/2019 TECHNIQUE: Axial images obtained. All CT scans at the facility use one or more dose reduction, viz: automated exposure control, ma/kV adjustment per patient size (including targeted exams where dose is matched to indication, i.e. head), or iterative reconstruction technique. FINDINGS: No midline shift, mass effect, intracranial hemorrhage, hydrocephalus, or extra-axial fluid collection is evident. There are periventricular and subcortical areas of decreased attenuation consistent with ischemic gliotic change from microvascular disease. The calvarium has an unremarkable appearance. Focal scalp soft tissue swelling is present in the right temporal area containing some calcifications. This has developed since the previous exam. This measures 1.9 by 1 cm. No sinus air-fluid level. IMPRESSION: 1. No acute intracranial findings. 2. Subcutaneous scalp lesion in the right temporal area which has developed since the previous exam. Please correlate with physical exam. A subcutaneous metastatic focus could have a similar appearance. Dictated by: Brad Ochoa MD 11/10/2019 09:33 Electronically signed by Brad Ochoa MD in [place] 11/10/2019 09:33
--- NOTE | 2019-11-10 09:04 | ECG_ITS ---
APPROVED REPORT Exam: Resting ECG HR:122 bpm ECG Measurements Heart Rate 122 AXES ME 132 P 53 QRSd 70 QRS -24 QT 324 T 55 QTc 461 <Conclusion> Sinus tachycardia Possible Left atrial enlargement Borderline ECG Electronically signed by : Chu Bradley, 11/14/2019 14:20:33
--- NOTE | 2019-11-10 09:05 | PC.NURSE ---
rad notified of CT order
--- NOTE | 2019-11-10 09:05 | PC.NURSE ---
BRIAN HONEYCUTT at
--- NOTE | 2019-11-10 09:08 | PC.NURSE ---
pt to CT
--- NOTE | 2019-11-10 09:08 | HMH.EDGENADL ---
ED Disposition Clinical Impression: Severe sepsis, HCAP (healthcare-associated pneumonia), Pancreatic mass, Multiple lesions of metastatic malignancy, Pleural effusion Disposition: Admitted As Inpatient Condition on Discharge: Serious - Critical Care Critical Care Time: No Attestation: On , the high probability of a clinically significant, sudden or life threatening deterioration of the following system(s) required my full and direct attention, intervention and personal management. The time I documented below is in addition to time spent performing reported procedures but includes the following listed in this critical care notation. Medical Decision Making - Medical Records Medical records reviewed: Yes: I reviewed the patient's medical records. - John Inquiry Pt receiving controlled substance: No Vital Signs: 11/10/19 09:02 11/10/19 09:49 11/10/19 10:45 Temperature 97.5 F L Temperature Source Oral Pulse Rate [Right Radial] 122 H 109 H 109 H Respiratory Rate 20 18 18 Blood Pressure [Right Arm] 133/88 113/66 116/71 Blood Pressure Mean [Right Arm] 103 81 86 Blood Pressure Source [Right Arm] Automatic Cuff Automatic Cuff Automatic Cuff Blood Pressure Position [Right Arm] Sitting Sitting Sitting 02 Sat by Pulse Oximetry 98 94 L 96 Oxygen Delivery Method Room Air Room Air Room Air 11/10/19 11:50 11/10/19 12:35 11/10/19 13:32 Temperature Temperature Source Pulse Rate [Right Radial] 107 H 98 H 104 H Respiratory Rate Blood Pressure [Right Arm] 109/74 L 127/80 107/73 L Blood Pressure Mean [Right Arm] 85 95 84 Blood Pressure Source [Right Arm] Automatic Cuff Automatic Cuff Automatic Cuff Blood Pressure Position [Right Arm] Supine Supine Supine 02 Sat by Pulse Oximetry 95 95 95 Oxygen Delivery Method Room Air Room Air Room Air 11/10/19 14:08 11/10/19 14:43 Temperature Temperature Source Pulse Rate [Right Radial] 98 H 102 H Respiratory Rate Blood Pressure [Right Arm] 107/72 L 108/67 L Blood Pressure Mean [Right Arm] 83 80 Blood Pressure Source [Right Arm] Automatic Cuff Automatic Cuff Blood Pressure Position [Right Arm] Sitting Supine 02 Sat by Pulse Oximetry 96 96 Oxygen Delivery Method Room Air Room Air - Lab Data Lab results reviewed: Yes: I reviewed the patient's lab results. Lab Results 11/10/19 09:38: WBC 29.5 H*, RBC 5.21, Hgb 16.6, Hct 49.8, MCV 95.7 H, MCH 31.9 H, MCHC 33.4, RDW 14.9, Plt Count 266, MPV 14.1 H, Neut % (Auto) 90.4 H, Lymph % (Auto) 3.5 L, [place] % (Auto) 5.3, Eos % (Auto) 0.1, Baso % (Auto) 0.8, Neut # (Auto) 26.7 H, Lymph # (Auto) 1.0, [place] # (Auto) 1.6 H, Eos # (Auto) 0.0, Baso # (Auto) 0.2, Total Counted 100, Neutrophils % (Manual) 92 H, Lymphocytes % (Manual) 3 L, Monocytes % (Manual) 5, Platelet Estimate Normal, Giant Platelets 2+, RBC Morphology Normal 11/10/19 09:38: Lactate 3.0 H 11/10/19 10:20: Urine Color Dk yellow, Urine Appearance Clear, Urine pH 5.5, Ur Specific [place] >= 1.030, Urine Protein Negative, Urine Glucose (UA) Negative, Urine Ketones Trace, Urine Blood Negative, Urine Nitrate Negative, Urine Bilirubin Negative, Urine Urobilinogen 1.0, Ur Leukocyte Esterase Negative, Urine RBC Occasional, Urine WBC Occasional, Ur Squamous Epith Cells Occasional, Amorphous Sediment Trace, Urine Bacteria Trace 11/10/19 10:35: Sodium 137, Potassium 3.8, Chloride 96 L, Carbon Dioxide 32 H, Anion Gap 12.8, BUN 42 H, Creatinine 0.80, Estimated Creat Clear 112, Estimated GFR 99, Est GFR ( Amer) 120, Glucose 129 H, Calcium 9.9, Total Bilirubin 1.4 H, AST 103 H, ALT 48, Alkaline Phosphatase 684 H, Troponin I 0.02, Total Protein 6.8 D, Albumin 3.2 L, Globulin 3.6 H, Albumin/Globulin Ratio 0.9 L 11/10/19 11:35: SARS-CoV-2 IgG Ab (Rapid) Positive A, SARS-CoV-2 IgM Ab (Rapid) Negative 11/10/19 12:23: Troponin I 0.02 11/10/19 12:23: Chlamy pneumoniae PCR Not detected, Adenovirus (PCR) Not detected, B. pertussis DNA (PCR) Not detected, Coronavirus OC43 (PCR) Not detected, Coronavi
--- NOTE | 2019-11-10 09:14 | XR_ITS ---
PROCEDURE: XR CHEST PORTABLE CLINICAL HISTORY: Shortness of breath, worsening shortness of breath COMPARISON: XR CHEST 2V from 02/10/2019 XR CHEST PORTABLE from 09/03/2019 CT CHEST W CON from 11/10/2019 FINDINGS: The cardiomediastinal silhouette and pulmonary vascularity are within normal limits. Increasing consolidation is present in the right lower lung zone. There may be a right infrahilar mass. Small right pleural effusion has developed. There is persistent nodular density in the left perihilar region at 2 cm with patchy infiltrate in the left midlung. Calcified nodes are present along the aortic arch region. Destructive lesion is present involving the left scapula along the superior aspect of the scapular spine. IMPRESSION: Worsening right lower lobe/right middle lobe consolidation with effusion and possible right infrahilar mass with persistent nodule in the left perihilar region. Destructive lesion left scapula. Recommend chest CT with contrast for further evaluation Dictated by: Brad Ochoa MD 11/10/2019 12:46 Electronically signed by Brad Ochoa MD in [place] 11/10/2019 12:46
--- NOTE | 2019-11-10 09:22 | PC.NURSE ---
pt return from CT
--- NOTE | 2019-11-10 10:15 | PC.NURSE ---
Dr Villa speaking with Dr Ochoa
--- NOTE | 2019-11-10 10:17 | PC.NURSE ---
Called Jesus Nguyen RN to come do an US guided IV per MD request.
[2019-11-10 10:18] LABS: Basophils # 0.2 K/mm3 (0-0.2); Basophils % 0.8 % (0.1-2.0); Eosinophils % 0.1 % (0.1-12.0); Hematocrit 49.8 % (42.0-52.0); Hemoglobin 16.6 g/dL (14.1-18.0); Lymphocytes % 3.5 % (10-50); Mean Corpuscular HGB Conc 33.4 g/dL (31.8-35.4); Mean Corpuscular Hemoglobin 31.9 pg (27.0-31.2); Mean Corpuscular Volume 95.7 fl (80-94); Mean Platelet Volume 14.1 fl (7.4-10.4); Monocytes # 1.6 K/mm3 (0.1-1.0); Monocytes % 5.3 % (1.7-9.3); Neutrophils # 26.7 K/mm3 (1.8-7.8); Neutrophils % 90.4 % (37.0-80.0); Platelet Count 266 K/mm3 (142-424); Red Blood Count 5.21 M/mm3 (4.60-6.20); Red Cell Distribution Width 14.9 % (11.5-17.5); White Blood Count 29.5 K/mm3 (4.8-10.8)
[2019-11-10 10:23] LABS: MANUAL DIFFERENTIAL MANUAL DIFFERENTIAL (MANUAL DIFF)
--- NOTE | 2019-11-10 10:26 | PC.NURSE ---
Jesus Nguyen at bedside
[2019-11-10 10:27] LABS: Lymphocytes % 3 % (10-50); Monocytes % 5 % (2-9); Neutrophils % 92 % (42-76); Platelet Estimate Normal; Total Cells Counted 100
[2019-11-10 10:27] LABS: Microscopic, Urine URINE MICROSCOPIC (MICROSCOPIC)
[2019-11-10 10:28] LABS: Giant Platelets 2+; RBC Morphology Normal
[2019-11-10 10:37] LABS: Appearance,Urine CLEAR (Clear); Blood, Urine Negative (Negative); Color,Urine DK YELLOW (Yellow); Glucose,Urine (UA) Negative (Negative); Ketones,Urine TRACE (Negative); Leukocyte Esterase,Urine Negative (Negative); Nitrate,Urine Negative (Negative); PH,Urine 5.5 (5.0-8.5); Protein,Urine Negative (Negative); Specific Gravity, Urine >= 1.030 (1.005-1.030)
[2019-11-10 10:51] LABS: Amorphous Sediment,Urine Trace /lpf; Bacteria,Urine Trace /lpf; Bilirubin,Urine Negative (Negative); RBC,Urine Occasional #/hpf (0-3); Squamous Epithelial Cell,Urine Occasional #/hpf (0-5); WBC,Urine Occasional #/hpf (0-3)
[2019-11-10 10:58] LABS: Chloride 96 mmol/L (98-107); Sodium 137 mmol/L (136-145)
[2019-11-10 10:59] LABS: Potassium 3.8 mmoL/L (3.5-5.1)
[2019-11-10 11:01] LABS: Alanine Aminotransferase 48 U/L (12-78); Albumin Level 3.2 g/dl (3.5-5.0); Albumin/Globulin Ratio 0.9 (1.1-1.8); Alkaline Phosphatase 684 U/L (38-126); Anion Gap 12.8 mEq/L (5-15); Aspartate Amino Transferase 103 U/L (17-59); Bilirubin,Total 1.4 mg/dl (0.2-1.3); Blood Urea Nitrogen 42 mg/dl (9-20); Calcium 9.9 mg/dl (8.4-10.2); Carbon Dioxide 32 mmol/L (22.0-30.0); Creatinine Clearance Estimated 112 mL/min (50-200); Estimated Glomerular Filt Rate 99 ml/min (>60); GFR (African American) 120 ML/MIN (>60); Globulin 3.6 g/dL (1.3-3.2); Glucose 129 mg/dl (74-100); Total Protein,Serum 6.8 g/dl (6.3-8.2)
--- NOTE | 2019-11-10 11:02 | PC.NURSE ---
rad notified of CT chest with IV contrast, spoke with Jessa. Stated chemistry panel is running in the lab.
--- NOTE | 2019-11-10 11:06 | CT_ITS ---
PROCEDURE: CT CHEST W CON CLINCAL INDICATION: recurrent pneumonia, pleural effusion COMPARISON: No exams were available for comparison TECHNIQUE: IV Contrast: 75ml Optiray 350 Axial images obtained with sagittal and coronal reformats. All CT scans at the facility use one or more dose reduction, viz: automated exposure control, ma/kV adjustment per patient size (including targeted exams where dose is matched to indication, i.e. head), or iterative reconstruction technique. FINDINGS: No mediastinal mass is evident. The heart size is normal. No pericardial thickening. Soft tissue mass is present in the right infrahilar region measuring 6.8 cm transverse, 4 cm AP, and 3 cm cephalad caudad. This is causing narrowing of the right middle lobe bronchus. Some of the dimensions of this mass may represent postobstructive lung consolidation. There are numerous noncalcified nodules in both lungs in the upper and lower lobes. There is a small to medium-sized right pleural effusion. There are multiple bilateral pulmonary nodules. The largest nodule measures up to 2.5 cm in the left lower lobe consistent with metastatic disease. There is a subcutaneous nodule in the left upper chest anteriorly and medially measuring 11 mm. Upper abdominal images demonstrates a soft tissue mass in the region of the tail of the pancreas measuring up to 11 by 5 by 5.6 cm consistent with neoplasm. This abuts the posterior aspect of the stomach and extends to the medial aspect of the spleen. This mass is heterogeneous in nature there is a hypodense mass in the right hepatic lobe measuring up to 8.6 cm transverse and 4.9 cm AP and extending cephalad caudad for at least 6 cm not completely imaged. A lytic lesion involves the medial aspect of the left 6th rib with suspected nondisplaced pathologic fracture. There is destruction also involving the L1 vertebral body on the left. This is incompletely imaged IMPRESSION: 1. 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 2. 6.8 x 4 cm infrahilar mass on the right extending into the right middle lobe. This could be secondary to metastatic disease or could be a 2nd primary malignancy. There is some postobstructive changes distal to this rib area. There is a small to medium-sized right pleural effusion 3. Dr. Villa notified of the above findings in the emergency room 6/2/20 at 12:10 p.m. Dictated by: Brad Ochoa MD 11/10/2019 12:17 Electronically signed by Brad Ochoa MD in [place] 11/10/2019 12:17
[2019-11-10 11:14] LABS: Troponin I 0.02 ng/ml (0.00-0.034)
--- NOTE | 2019-11-10 11:49 | PC.NURSE ---
Notified lab that patient needed to be swabbed for covid
--- NOTE | 2019-11-10 11:50 | PC.NURSE ---
Pt returned from rad
--- NOTE | 2019-11-10 11:51 | PC.NURSE ---
[facility] staff called at this time to check on pt. Notified her that per ER MD we plan to admit pt after ct chest scan result. Staff states pt is scheduled for an MRI of the brain tomorrow at 3:15pm for changes in mentation over the past several months. Will notify ER MD and contact care management.
--- NOTE | 2019-11-10 11:55 | PC.NURSE ---
contacted care management spoke with Hailee about pts outpt MRI that is scheduled for tomorrow. States to notify [facility] staff that it can't be done unless it is related to pts admission problem.
--- NOTE | 2019-11-10 11:57 | PC.NURSE ---
spoke with Marium in the lab and she stated that they would be down to collect the pt's COVID swab around the time for his repeat troponin around 12:30
[2019-11-10 12:13] LABS: Coronavirus 19 IgG Antibody Positive (Negative); Coronavirus 19 IgM Antibody Negative (Negative)
--- NOTE | 2019-11-10 12:16 | PC.NURSE ---
DR JARQUIN SPEAKING WITH DR ANDERSON
--- NOTE | 2019-11-10 12:16 | PC.NURSE ---
LAB CALLED WITH NOTIFICATIONS HIS IGG IS + DR JARQUIN NOTIFIED
--- NOTE | 2019-11-10 12:28 | CT_ITS ---
PROCEDURE: CT ABDOMEN PELVIS W CON CLINICAL INDICATION: abdominal mass Metastatic disease evaluation, chest mass and pancreatic mass incompletely imaged COMPARISON: No exams were available for comparison TECHNIQUE: IV Contrast: 75ML OPTIRAY 350 Oral Contrast none Axial images obtained with sagittal and coronal reformats. All CT scans at the facility use one or more dose reduction, viz: automated exposure control, ma/kV adjustment per patient size (including targeted exams where dose is matched to indication, i.e. head), or iterative reconstruction technique. FINDINGS: The please see chest CT for description lower thoracic abnormalities. Right pleural effusion is present with bilateral lower lobe nodules and right infrahilar mass. There is a large heterogeneous mass within the right hepatic lobe posteriorly measuring up to 10 cm transverse. There is an additional ill-defined mass in the left hepatic lobe medially at 1.5 cm. The liver has a somewhat nodular contour. A 1.5 cm nodules present in the hepatic dome. There is a heterogeneous soft tissue mass in the left upper quadrant which appears to be arising from the tail the pancreas and measures a maximum of approximately 11 cm diagonal, 10 cm transverse, 6 cm cephalad caudad, and up to 9 cm AP along the lateral aspect of this mass. This extends to the hilum of the spleen and at 1 point is inseparable from the posterior aspect of the body of the stomach. No adrenal lesions are evident. There are bilateral renal cysts. The gallbladder has an unremarkable appearance. Rectal fecal impaction is present. No soft tissue mass is evident within the pelvis. There are multiple bony metastasis including the pedicle and transverse process on the left at the L1 vertebral body, the L2 vertebral body. There is 25 percent compressive change involving the L2 vertebral body which could be acute. Lytic lesion involves the right iliac crest measuring 2 cm. There is a subcutaneous nodule along the medial aspect of the right gluteus medius measuring 2 cm consistent with a metastatic lesion. Destructive lesion involves the medial aspect of the right superior and inferior pubic ramus with expansion of the bone at this area. There is an old fracture of the inferior pubic ramus on the right. There is an old left inferior pubic ramus fracture is well. Lytic lesion involves the lesser trochanter of the right femur at 2 cm. Blastic lesion is noted along the left ilium anteriorly and laterally at 2 cm with an exophytic component. 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 There is a heterogeneous mass in the left upper quadrant which may originate from the pancreatic tail and may represent primary pancreatic malignancy 2. Multiple liver lesions, pulmonary lesions and lytic lesions of the bones consistent with metastatic disease. Soft tissue nodules present along the gluteus medius on the right suspicious for metastatic nodule Dictated by: Brad Ochoa MD 11/10/2019 13:25 Electronically signed by Brad Ochoa MD in [place] 11/10/2019 13:25
--- NOTE | 2019-11-10 12:35 | PC.NURSE ---
Dr Fadi Hampton.
--- NOTE | 2019-11-10 12:42 | PC.NURSE ---
Pt to rad.
[2019-11-10 12:55] LABS: Adenovirus,PCR Not Detected (NotDetected); Bordetella Pertussis Not Detected (NotDetected); Chlamydophila Pneumoniae, PCR Not Detected (NotDetected); Coronavirus 19, PCR Not Detected (NotDetected); Coronavirus 229E Not Detected (NotDetected); Coronavirus NL63 Not Detected (NotDetected); Coronavirus OC43 Not Detected (NotDetected); Coronovirus HKU1,PCR Not Detected (NotDetected); Human Metapneumovirus Not Detected (NotDetected); Influenza A, PCR Not Detected (NotDetected); Influenza AH1, 2009 Not Detected (NotDetected); Influenza AH1, PCR Not Detected (NotDetected); Influenza AH3,PCR Not Detected (NotDetected); Influenza B, PCR Not Detected (NotDetected); Mycoplasma Pneumoniae, PCR Not Detected (NotDected); Parainfluenza 1, PCR Not Detected (NotDetected); Parainfluenza 2, PCR Not Detected (NotDetected); Parainfluenza 3, PCR Not Detected (NotDetected); Parainfluenza 4, PCR Not Detected (NotDetected); Respiratory Syncytial Virus Not Detected (NotDetected); Rhinovirus/Enterovirus Not Detected (NotDetected)
--- NOTE | 2019-11-10 13:03 | PC.NURSE ---
pt returned from CT
--- NOTE | 2019-11-10 13:04 | PC.NURSE ---
dr yadav speaking with maida bermudez
--- NOTE | 2019-11-10 13:12 | PC.NURSE ---
Pt to be admitted to Dr Aponte awaiting the results of his COVID 19 swab.
[2019-11-10 13:15] LABS: Troponin I 0.02 ng/ml (0.00-0.034)
[2019-11-10 13:59] LABS: Reflex Lactic Add Lactic Reflex
[2019-11-10 14:52] LABS: Lactic Acid Follow Up (RFLX 1) 1.5 mmol/L (0.7-2.1)
--- NOTE | 2019-11-10 14:56 | PC.NURSE ---
report called to Denise Ziegler RN on second floor at this time, stated she will send staff down to transport pt
--- NOTE | 2019-11-10 15:11 | P.CONPHA_ITS ---
- Pharmacy Consult Date: 11/10/19 Time: 15:11 Referring provider: DR. SHOEMAKER Reason for Consult:: VANCOMYCIN DOSING Allergies and ADEs:: Allergies Allergy/AdvReac Type Severity Reaction Status Date / Time No Known Allergies Allergy Verified 10/14/19 15:31 Home Medications:: Home Medications Medication Instructions Recorded Confirmed Type Lactulose [Lactulose 10gm/15ml 30 ml PO DAILY 11/10/19 11/10/19 History Oral Soln] Height: 1.8 m Weight: 79.379 kg Laboratory Results:: Laboratory Results - last 24 hr 11/10/19 09:38: WBC 29.5 H*, RBC 5.21, Hgb 16.6, Hct 49.8, MCV 95.7 H, MCH 31.9 H, MCHC 33.4, RDW 14.9, Plt Count 266, MPV 14.1 H, Neut % (Auto) 90.4 H, Lymph % (Auto) 3.5 L, [place] % (Auto) 5.3, Eos % (Auto) 0.1, Baso % (Auto) 0.8, Neut # (Auto) 26.7 H, Lymph # (Auto) 1.0, [place] # (Auto) 1.6 H, Eos # (Auto) 0.0, Baso # (Auto) 0.2, Total Counted 100, Neutrophils % (Manual) 92 H, Lymphocytes % (Manual) 3 L, Monocytes % (Manual) 5, Platelet Estimate Normal, Giant Platelets 2+, RBC Morphology Normal 11/10/19 09:38: Lactate 3.0 H 11/10/19 10:20: Urine Color Dk yellow, Urine Appearance Clear, Urine pH 5.5, Ur Specific [place] >= 1.030, Urine Protein Negative, Urine Glucose (UA) Negative, Urine Ketones Trace, Urine Blood Negative, Urine Nitrate Negative, Urine Bilirubin Negative, Urine Urobilinogen 1.0, Ur Leukocyte Esterase Negative, Urine RBC Occasional, Urine WBC Occasional, Ur Squamous Epith Cells Occasional, Amorphous Sediment Trace, Urine Bacteria Trace 11/10/19 10:35: Sodium 137, Potassium 3.8, Chloride 96 L, Carbon Dioxide 32 H, Anion Gap 12.8, BUN 42 H, Creatinine 0.80, Estimated Creat Clear 112, Estimated GFR 99, Est GFR ( Amer) 120, Glucose 129 H, Calcium 9.9, Total Bilirubin 1.4 H, AST 103 H, ALT 48, Alkaline Phosphatase 684 H, Troponin I 0.02, Total Protein 6.8 D, Albumin 3.2 L, Globulin 3.6 H, Albumin/Globulin Ratio 0.9 L 11/10/19 11:35: SARS-CoV-2 IgG Ab (Rapid) Positive A, SARS-CoV-2 IgM Ab (Rapid) Negative 11/10/19 12:23: Troponin I 0.02 11/10/19 12:23: Chlamy pneumoniae PCR Not detected, Adenovirus (PCR) Not detected, B. pertussis DNA (PCR) Not detected, Coronavirus OC43 (PCR) Not detected, Coronavirus HKU1 (PCR) Not detected, Coronavirus 229E (PCR) Not detected, COVID-19 PCR Not detected, Coronavirus NL63 (PCR) Not detected, Human Metapneumovir PCR Not detected, Influenza A (H1) PCR Not detected, Influ A (H1N1/09) PCR Not detected, Influenza A (H3) PCR Not detected, Influenza Type A (PCR) Not detected, Influenza Type B (PCR) Not detected, M. pneumoniae (PCR) Not detected, Parainfluenza 1 (PCR) Not detected, Parainfluenza 2 (PCR) Not detected, Parainfluenza 3 (PCR) Not detected, Parainfluenza 4 (PCR) Not detected, RSV (PCR) Not detected, Entero/Rhino (PCR) Not detected 11/10/19 14:35: Lactate 1.5 Medical History: Denies:: Diabetes Mellitus Type 1, Diabetes Mellitus Type 2 Assessment and Plan - Assessment and plan all Dx Assessment and Plan for all problems:: BASED ON PATIENT'S FACTORS, RECOMMEND VANCOMYCIN 1500 MG Q12H AT THIS TIME. PHARMACY WILL FOLLOW DAILY AND ADJUST APPROPRIATE.
--- NOTE | 2019-11-10 20:17 | HMH.HP ---
*Admission Date: 11/10/19 *Chief complaint: weakness *History of present illness: this wm from [facility] -pt had been at [facility] and had cap and went to [facility] and has progressively been more confused at time and dec ambulation and adl- he The patient is brought by ambulance from [facility]. Reportedly he was supposed to have an appointment with Dr. Up today but was found to be weak and diaphoretic and a temperature of 97.1. During transport he is reported to have had a blood pressure in the 80s. The patient seems confused and does not seem to be a good historian. He states he feels a okay and gives me a thumbs up. Denies any pain or difficulty breathing. Denies nausea. He knows he is at the hospital, but does not know which hospital it is. He does not know the year. pt was found to have cap and also prob metastatic disease - pt was admitted with ivf and abx -also found to be covid-19 igg positive - [facility] History I have reviewed the patient's past medical history: Yes Medical History: Denies:: Diabetes Mellitus Type 1, Diabetes Mellitus Type 2 *Have you ever received a pneumonia vaccine?: No *Have you received a flu vaccine this season?: No - *Social History Smoking Status: Never smoker Alcohol Intake: never *Occupational Status:: disabled Housing: snf *Travel in the last 8 weeks: None Family Hx:: Unable to obtain Review of Systems - Review of Systems Review of systems:: pertinent systems reviewed and negative unless documented below - Constitutional Reports weakness, Reports weight loss - Eyes Denies change in vision - ENT Denies headache(s) - *Cardiovascular Reports shortness of breath - *Respiratory Reports cough - *Gastrointestinal Denies abdominal pain - *Genitourinary Denies blood in urine - *Musculoskeletal Denies joint pain - Integumentary/Breasts Denies rash - *Neurologic Reports confusion, Denies localized weakness, Denies headache(s), Denies seizure-like activity - Psychiatric Reports behavioral changes Meds Home Medications Medication Instructions Recorded Confirmed Type Bisacodyl [Bisacodyl 10mg Supp] 1 suppositor RC DAILY 11/10/19 11/10/19 History Lactulose [Lactulose 10gm/15ml 30 ml PO DAILY 11/10/19 11/10/19 History Oral Soln] Allergies Allergy/AdvReac Type Severity Reaction Status Date / Time No Known Allergies Allergy Verified 10/14/19 15:31 Exam Vital signs and Labs for Last 24 Hours: Temp Pulse Resp BP Pulse Ox 97.6 F 100 H 18 110/74 98 11/10/19 16:01 11/10/19 16:01 11/10/19 16:01 11/10/19 16:01 11/10/19 16:01 Laboratory Results - last 24 hr 11/10/19 09:38: WBC 29.5 H*, RBC 5.21, Hgb 16.6, Hct 49.8, MCV 95.7 H, MCH 31.9 H, MCHC 33.4, RDW 14.9, Plt Count 266, MPV 14.1 H, Neut % (Auto) 90.4 H, Lymph % (Auto) 3.5 L, [place] % (Auto) 5.3, Eos % (Auto) 0.1, Baso % (Auto) 0.8, Neut # (Auto) 26.7 H, Lymph # (Auto) 1.0, [place] # (Auto) 1.6 H, Eos # (Auto) 0.0, Baso # (Auto) 0.2, Total Counted 100, Neutrophils % (Manual) 92 H, Lymphocytes % (Manual) 3 L, Monocytes % (Manual) 5, Platelet Estimate Normal, Giant Platelets 2+, RBC Morphology Normal 11/10/19 09:38: Lactate 3.0 H 11/10/19 10:20: Urine Color Dk yellow, Urine Appearance Clear, Urine pH 5.5, Ur Specific [place] >= 1.030, Urine Protein Negative, Urine Glucose (UA) Negative, Urine Ketones Trace, Urine Blood Negative, Urine Nitrate Negative, Urine Bilirubin Negative, Urine Urobilinogen 1.0, Ur Leukocyte Esterase Negative, Urine RBC Occasional, Urine WBC Occasional, Ur Squamous Epith Cells Occasional, Amorphous Sediment Trace, Urine Bacteria Trace 11/10/19 10:35: Sodium 137, Potassium 3.8, Chloride 96 L, Carbon Dioxide 32 H, Anion Gap 12.8, BUN 42 H, Creatinine 0.80, Estimated Creat Clear 112, Estimated GFR 99, Est GFR ( Amer) 120, Glucose 129 H, Calcium 9.9, Total Bilirubin 1.4 H, AST 103 H, ALT 48, Alkaline Phosphatase 684 H, Troponin I 0.02, Total Protein 6.8 D, Albumin 3.2
--- NOTE | 2019-11-10 20:24 | PC.NURSE ---
Pt is alert to self and is able to tell me he is in the hospital and he likes METV, otherwise he is confused. Pt has had no complaints and denies pain,distress. VSS. Lungs cta. CB in reach. Have given report to current RN.
[2019-11-11] VITALS: BP 119/68; PULSE 81; RESP 17; TEMP 36.4; O2SAT 97
[2019-11-11 03:53] VITALS: BP 145/81; PULSE 89; RESP 20; TEMP 36.6; O2SAT 98
--- NOTE | 2019-11-11 04:47 | PC.NURSE ---
PT A&OX3. PT UNAWARE OF WHAT TOWN HE IS IN. PT HAS RESTED T/O MAJORITY OF SHIFT. PT HAS BEEN INCONTINENT, BRIEF CHANGED NEEDED. PT HAS HAD NO C/O PAIN, NA/VO OR SOA. VSS WILL CONTINUE TO MONITOR.
[2019-11-11 06:46] LABS: Basophils # 0.1 K/mm3 (0-0.2); Eosinophils % 0.2 % (0.1-12.0); Mean Corpuscular Hemoglobin 31.8 pg (27.0-31.2); Monocytes # 1.4 K/mm3 (0.1-1.0)
[2019-11-11 06:55] LABS: Basophils % 0.7 % (0.1-2.0); Hematocrit 41.9 % (42.0-52.0); Lymphocytes # 1.1 K/mm3 (0.7-4.5); Lymphocytes % 5.4 % (10-50); Mean Corpuscular HGB Conc 33.4 g/dL (31.8-35.4); Mean Corpuscular Volume 95.2 fl (80-94); Mean Platelet Volume 12.7 fl (7.4-10.4); Neutrophils # 17.3 K/mm3 (1.8-7.8); Neutrophils % 86.8 % (37.0-80.0); Platelet Count 146 K/mm3 (142-424); Red Cell Distribution Width 14.8 % (11.5-17.5); White Blood Count 19.9 K/mm3 (4.8-10.8)
[2019-11-11 06:58] LABS: MANUAL DIFFERENTIAL MANUAL DIFFERENTIAL (MANUAL DIFF)
[2019-11-11 07:42] VITALS: BMI 25.2
[2019-11-11 07:43] LABS: Lymphocytes % 3 % (10-50); Monocytes % 6 % (2-9); Neutrophils % 91 % (42-76); Total Cells Counted 100
[2019-11-11 07:44] LABS: Giant Platelets 1+; Platelet Estimate Normal; RBC Morphology Normal
[2019-11-11 08:00] VITALS: BP 123/69; PULSE 84; RESP 16; TEMP 36.5; O2SAT 94
--- NOTE | 2019-11-11 08:20 | P.CONPHA_ITS ---
[facility] Pharmacy VTE Monitoring - Patient Demographics Admission date: 11/10/19 Report Date: 11/11/19 Time: 08:20 Allergies/Adverse Reactions: Patient Allergies No Known Allergies Allergy (Verified 10/14/19 15:31) Height: 1.85 m Weight: 86.183 kg Patient Problems: Current Active Problems Severe sepsis (Acute) HCAP (healthcare-associated pneumonia) (Acute) Pancreatic mass (Acute) Multiple lesions of metastatic malignancy (Acute) Pleural effusion (Acute) Severe sepsis with acute organ dysfunction (Acute) COVID-19 virus IgG antibody detected (Acute) Pancreatic mass (Acute) Multiple lesions of metastatic malignancy (Acute) - VTE Risk Labs: VTE Related Lab Results Hgb 14.0 g/dL (14.1-18.0) L D 11/11/19 06:18 Hct 41.9 % (42.0-52.0) L 11/11/19 06:18 Plt Count 146 K/mm3 (142-424) D 11/11/19 06:18 BUN 42 mg/dl (9-20) H 11/10/19 10:35 Creatinine 0.80 mg/dl (0.66-1.25) 11/10/19 10:35 Estimated Creat Clear 112 mL/min (50-200) 11/10/19 10:35 Clinical Trial Participant: No - Prophylaxis VTE Prophylaxis Ordered?: Yes Types of VTE Prophylaxis: TEDS Knee High
--- NOTE | 2019-11-11 08:37 | HMH.ACPN2 ---
Internal Medicine - PN: Subj *Date: 11/11/19 *Time: 08:59 Interval history: 58-year-old male patient lying in bed in no apparent distress. He is pleasantly confused alert to name only. Attempted to explain that he has cancer and we are consulting an oncologist, he is unable to fully grasp of the situation after multiple attempts Exam Vital signs and Labs for Last 24 Hours: Temp Pulse Resp BP Pulse Ox 97.7 F 84 16 123/69 94 L 11/11/19 08:00 11/11/19 08:00 11/11/19 08:00 11/11/19 08:00 11/11/19 08:00 Laboratory Results - last 24 hr 11/10/19 09:38: WBC 29.5 H*, RBC 5.21, Hgb 16.6, Hct 49.8, MCV 95.7 H, MCH 31.9 H, MCHC 33.4, RDW 14.9, Plt Count 266, MPV 14.1 H, Neut % (Auto) 90.4 H, Lymph % (Auto) 3.5 L, [place] % (Auto) 5.3, Eos % (Auto) 0.1, Baso % (Auto) 0.8, Neut # (Auto) 26.7 H, Lymph # (Auto) 1.0, [place] # (Auto) 1.6 H, Eos # (Auto) 0.0, Baso # (Auto) 0.2, Total Counted 100, Neutrophils % (Manual) 92 H, Lymphocytes % (Manual) 3 L, Monocytes % (Manual) 5, Platelet Estimate Normal, Giant Platelets 2+, RBC Morphology Normal 11/10/19 09:38: Lactate 3.0 H 11/10/19 10:20: Urine Color Dk yellow, Urine Appearance Clear, Urine pH 5.5, Ur Specific [place] >= 1.030, Urine Protein Negative, Urine Glucose (UA) Negative, Urine Ketones Trace, Urine Blood Negative, Urine Nitrate Negative, Urine Bilirubin Negative, Urine Urobilinogen 1.0, Ur Leukocyte Esterase Negative, Urine RBC Occasional, Urine WBC Occasional, Ur Squamous Epith Cells Occasional, Amorphous Sediment Trace, Urine Bacteria Trace 11/10/19 10:35: Sodium 137, Potassium 3.8, Chloride 96 L, Carbon Dioxide 32 H, Anion Gap 12.8, BUN 42 H, Creatinine 0.80, Estimated Creat Clear 112, Estimated GFR 99, Est GFR ( Amer) 120, Glucose 129 H, Calcium 9.9, Total Bilirubin 1.4 H, AST 103 H, ALT 48, Alkaline Phosphatase 684 H, Troponin I 0.02, Total Protein 6.8 D, Albumin 3.2 L, Globulin 3.6 H, Albumin/Globulin Ratio 0.9 L 11/10/19 11:35: SARS-CoV-2 IgG Ab (Rapid) Positive A, SARS-CoV-2 IgM Ab (Rapid) Negative 11/10/19 12:23: Troponin I 0.02 11/10/19 12:23: Chlamy pneumoniae PCR Not detected, Adenovirus (PCR) Not detected, B. pertussis DNA (PCR) Not detected, Coronavirus OC43 (PCR) Not detected, Coronavirus HKU1 (PCR) Not detected, Coronavirus 229E (PCR) Not detected, COVID-19 PCR Not detected, Coronavirus NL63 (PCR) Not detected, Human Metapneumovir PCR Not detected, Influenza A (H1) PCR Not detected, Influ A (H1N1/09) PCR Not detected, Influenza A (H3) PCR Not detected, Influenza Type A (PCR) Not detected, Influenza Type B (PCR) Not detected, M. pneumoniae (PCR) Not detected, Parainfluenza 1 (PCR) Not detected, Parainfluenza 2 (PCR) Not detected, Parainfluenza 3 (PCR) Not detected, Parainfluenza 4 (PCR) Not detected, RSV (PCR) Not detected, Entero/Rhino (PCR) Not detected 11/10/19 14:35: Lactate 1.5 11/11/19 06:18: WBC 19.9 H D, RBC 4.40 L, Hgb 14.0 L D, Hct 41.9 L, MCV 95.2 H, MCH 31.8 H, MCHC 33.4, RDW 14.8, Plt Count 146 D, MPV 12.7 H, Neut % (Auto) 86.8 H, Lymph % (Auto) 5.4 L, [place] % (Auto) 7.0, Eos % (Auto) 0.2, Baso % (Auto) 0.7, Neut # (Auto) 17.3 H, Lymph # (Auto) 1.1, [place] # (Auto) 1.4 H, Eos # (Auto) 0.0, Baso # (Auto) 0.1, Total Counted 100, Neutrophils % (Manual) 91 H, Lymphocytes % (Manual) 3 L, Monocytes % (Manual) 6, Platelet Estimate Normal, Giant Platelets 1+, RBC Morphology Normal I & O for Last 24 hours: Intake & Output 11/08/19 11/09/19 11/10/19 11/11/19 23:59 23:59 23:59 23:59 Intake Total 930 / 930 2022 Balance 930 / 930 2022 Weight 190 lb 190 lb 0.016 oz - Constitutional no acute distress - *Routine HEENT Exam Head: Present: normocephalic ENT: Present: mucous membranes dry - *Routine Neck Exam Present: full ROM, trachea midline. Absent: JVD, tracheal deviation - *Routine Respiratory Exam Present: wheezes. Absent: accessory muscle use - *Routine Cardiovascular Exam Present: RRR, murmur - *Routine Abdominal Exam Present: sof
--- NOTE | 2019-11-11 08:38 | HMH.PHAINT ---
MEDICATION RECONCILIATION COMPLETED ON PATIENT USING MAR FROM [facility]. -CÉSAR PETER, MERYD
--- NOTE | 2019-11-11 10:06 | SW/DCPLANNER ---
Addendum entered by Radha Randall 11/11/19 10:49: SPOKE WITH OVIDIO AT [facility] AND SHE STATED MR SANCHEZ IS ON A MEDICAID BEDHOLD THERE AND WILL RETURN THERE POST HOSPITAL STAY.. Original Note: PATIENT IS A RESIDENT OF [facility], DR SHOEMAKER STATED THIS MORNING PATIENT IS GOING TO NEED TO SEE DR ELAINE IN ONCOLOGY AND IF SHE FEELS THE NEED FOR A HOSPICE CONSULT IT WILL BE ORDERED ONCE PATIENT IS MEDICALLY READY TO GO BACK TO HIS [facility] BED... PATIENT DOES NOT HAVE A GUARDIAN, HAS AN AUNT LISTED EXTENDED FAMILY.. NOT SURE HOW MUCH INVOLVEMENT SHE HAS WITH HIM...IF DEEMED A HOSPICE CANDIDATE, AUNT WILL BE NOTIFIED...DISPOSITION UNCERTAIN AT THIS TIME...
[2019-11-11 12:00] VITALS: BP 132/75; PULSE 85; RESP 17; TEMP 36.7; O2SAT 96
[2019-11-11 16:00] VITALS: BP 123/71; PULSE 93; RESP 17; TEMP 36.9; O2SAT 95
--- NOTE | 2019-11-11 18:14 | PC.NURSE ---
ALERT AND ORIENTED X3. PT HAS A DELAYED RESPONSE AND INSTRUCTIONS HAVE TO BE REPEATED SEVERAL TIMES. PT DENIES PAIN. VSS. NO DISTRESS NOTED. APPETITE IS POOR, PT HAS ONLY EATEN ICE CREAM THIS SHIFT. SAFETY MEASURES IN PLACE. CALL LIGHT WITHIN REACH, WILL CONTINUE TO MONITOR
--- NOTE | 2019-11-11 19:09 | PC.NURSE ---
report given to shante
[2019-11-11 20:00] VITALS: BP 115/75; PULSE 92; RESP 18; TEMP 37; O2SAT 95
[2019-11-12] VITALS (8 sets, daily range): BP systolic 113–139; BP diastolic 68–78; PULSE 89–106; RESP 16–20; TEMP 36.5–37.1; O2SAT 92–93
[2019-11-12 05:23] LABS: Vancomycin,Trough 12.9 ug/mL (5.0-10.0)
--- NOTE | 2019-11-12 05:28 | PC.NURSE ---
Nitin James from pharmacy called this RN to report vanc trough of 12.9. Ok to give 0500 vanc dose per Jacob.
--- NOTE | 2019-11-12 06:31 | PC.NURSE ---
Pt slept in short intervals throughout the shift. No complaints reported. Pt was unable to assist when staff attempted to get a weight this AM due to weakness. Pt is not in a weigh bed. Pt is alert to name, SUSY, states he is in [place] and it is the month of November. Flat affect. Pt has been turned often to prevent skin breakdown. Tolerating PO intake fine. Doppler used to assess LLE pedal pulse. Bilateral bruising to shins noted and cool to touch. No erythema or tenderness to calves present. Pt is incontinent of bladder and wearing a brief, changed as necessary. Small BM this shift. VSS.
--- NOTE | 2019-11-12 09:04 | HMH.ACPN2 ---
Internal Medicine - PN: Subj *Date: 11/12/19 *Time: 09:04 Interval history: Patient states okay when asked how he feels Exam Vital signs and Labs for Last 24 Hours: Temp Pulse Resp BP Pulse Ox 97.7 F 106 H 18 128/73 93 L 11/12/19 08:00 11/12/19 08:00 11/12/19 08:00 11/12/19 08:00 11/12/19 08:00 Laboratory Results - last 24 hr 11/12/19 04:45: Vancomycin Trough 12.9 H I & O for Last 24 hours: Intake & Output 11/09/19 11/10/19 11/11/19 11/12/19 11:59 11:59 11:59 11:59 Intake Total 2953 / 2953 2776 / 2776 Balance 2953 / 2953 2776 / 2776 Weight 175 lb 190 lb 0.016 oz - Constitutional no acute distress, chronically ill appearing - *Routine HEENT Exam Head: Present: normocephalic Eye: Present: PERRL ENT: Present: mucous membranes moist - *Routine Neck Exam Present: supple. Absent: lymphadenopathy - *Routine Respiratory Exam Present: rhonchi - *Routine Cardiovascular Exam Present: RRR - *Routine Abdominal Exam Present: soft, normoactive bowel sounds. Absent: tenderness - *Routine Extremities Exam Present: normal capillary refill. Absent: cyanosis, clubbing, edema - *Routine Skin Exam Present: warm. Absent: rash Comments: pale - *Routine Neurological Exam Present: alert - Routine Psychiatric Exam Present: normal affect Assessment and Plan (1) Severe sepsis with acute organ dysfunction Current visit: Yes Status: Acute Category: Medical Code(s): A41.9 - Sepsis, unspecified organism; R65.20 - Severe sepsis without septic shock (2) HCAP (healthcare-associated pneumonia) Current visit: Yes Status: Acute Category: Medical Code(s): J18.9 - Pneumonia, unspecified organism (3) COVID-19 virus IgG antibody detected Current visit: Yes Status: Acute Category: Medical Code(s): Z01.84 - Encounter for antibody response examination (4) Pancreatic mass Current visit: Yes Status: Acute Category: Medical Code(s): K86.89 - Other specified diseases of pancreas (5) Multiple lesions of metastatic malignancy Current visit: Yes Status: Acute Category: Medical Code(s): C79.9 - Secondary malignant neoplasm of unspecified site - Assessment and plan all Dx Assessment and Plan for all problems:: Rounded with Dr. Aponte all orders per Fadi herman to see pt
--- NOTE | 2019-11-12 10:53 | SW/DCPLANNER ---
Addendum entered by Keeley Randolph 11/13/19 10:29: I have informed Rachel with [facility] that this patient will be discharging back today. Patient will be [facility] level of care and receive Palliative Care Services from [facility]. Addendum entered by Keeley Randolph 11/12/19 17:57: I have notified Rachel with [facility] that plans are to discharge tomorrow. Addendum entered by [facility] 11/12/19 14:47: Dr Aponte stated that he will discharge this patient back to [facility] today. Rachel from [facility] is fine with this plan. Addendum entered by [facility] 11/12/19 13:11: Patient and MD have stated they agree with discharging back to [facility] with Palliative services from [facility] once ready for discharge. I will continue to follow up with Rachel from [facility]. Addendum entered by Keeley Randolph 11/12/19 11:03: Rachel from [facility] has stated that if patient needs Hospice services at discharge she prefer patient discharge with Palliative Care services from [facility] and not Hospice. Original Note: This patient currently resides at [facility] level of care with Medicaid bedhold days. Oncology will evaluate this patient today regarding new diagnosis of Pancreatic cancer. I have attempted to contact patients aunt listed in demographics with no answer and no voicemail set up. I will follow up with Rachel at [facility] regarding this patient. Patient may discharge back to [facility] later today.
--- NOTE | 2019-11-12 11:32 | P.CONPHA_ITS ---
- Pharmacy Consult Date: 11/12/19 Time: 11:32 Referring provider: DR. SHOEMAKER Reason for Consult:: VANCOMYCIN TROUGH LEVEL Allergies and ADEs:: Allergies Allergy/AdvReac Type Severity Reaction Status Date / Time No Known Allergies Allergy Verified 10/14/19 15:31 Home Medications:: Home Medications Medication Instructions Recorded Confirmed Type Bisacodyl [Bisacodyl 10mg Supp] 1 suppositor RC DAILY 11/10/19 11/10/19 History Lactulose [Lactulose 10gm/15ml 30 ml PO DAILY 11/10/19 11/10/19 History Oral Soln] Acetaminophen [Tylenol Extra 1,000 mg PO Q6HP PRN 11/11/19 11/11/19 History Strength] Height: 1.85 m Weight: 86.183 kg Laboratory Results:: Laboratory Results - last 24 hr 11/12/19 04:45: Vancomycin Trough 12.9 H Medical History: Denies:: Diabetes Mellitus Type 1, Diabetes Mellitus Type 2 Assessment and Plan (1) Severe sepsis with acute organ dysfunction Current visit: Yes Status: Acute Category: Medical Code(s): A41.9 - Sepsi s, unspecified organism; R65.20 - Severe sepsis without septic shock (2) HCAP (healthcare-associated pneumonia) Current visit: Yes Status: Acute Category: Medical Code(s): J18.9 - Pneumonia, unspecified organism (3) COVID-19 virus IgG antibody detected Current visit: Yes Status: Acute Category: Medical Code(s): Z01.84 - Encounter for antibody response examination (4) Pancreatic mass Current visit: Yes Status: Acute Category: Medical Code(s): K86.89 - Other specified diseases of pancreas (5) Multiple lesions of metastatic malignancy Current visit: Yes Status: Acute Category: Medical Code(s): C79.9 - Secondary malignant neoplasm of unspecified site - Assessment and plan all Dx Assessment and Plan for all problems:: BASED ON PATIENT FACTORS AND VANCOMYCIN TROUGH LEVEL, RECOMMEND CONTINUING VANCOMYCIN 1500 MG IV Q12H. PHARMACY WILL CONTINUE TO FOLLOW DAILY AND ADJUST APPROPRIATE.
--- NOTE | 2019-11-12 12:30 | HMH.CONS ---
*Admission Date: 11/10/19 *Reason for consult:: clinical metastatic pancreatic cancer *History of present illness: pt is poor historian. history mostly from chart. pt presented to ed. had scans demonstrating pancreatic mass, mets to liver, bone. pt states he has some nausea. he denies pain. not sure pt understands or comprehends disease process. [facility] History Medical History: Denies:: Diabetes Mellitus Type 1, Diabetes Mellitus Type 2 *Have you ever received a pneumonia vaccine?: No (unable to confirm) *Have you received a flu vaccine this season?: No (unable to confirm) - *Social History Smoking Status: Never smoker Alcohol Intake: never *Occupational Status:: disabled Housing: intermediate *Travel in the last 8 weeks: None Family Hx:: Unable to obtain Review of Systems - Review of Systems Review of systems:: unable to obtain (limited ros due to pt mental status) - *Gastrointestinal Reports nausea - *Neurologic Reports behavioral changes, Reports confusion, Reports weakness, Denies localized weakness, Denies headache(s), Denies seizure-like activity Meds Home Medications Medication Instructions Recorded Confirmed Type Bisacodyl [Bisacodyl 10mg Supp] 1 suppositor RC DAILY 11/10/19 11/10/19 History Lactulose [Lactulose 10gm/15ml 30 ml PO DAILY 11/10/19 11/10/19 History Oral Soln] Acetaminophen [Tylenol Extra 1,000 mg PO Q6HP PRN 11/11/19 11/11/19 History Strength] Allergies Allergy/AdvReac Type Severity Reaction Status Date / Time No Known Allergies Allergy Verified 10/14/19 15:31 Exam Vital signs and Labs for Last 24 Hours: Temp Pulse Resp BP Pulse Ox 98.2 F 98 H 16 123/72 93 L 11/12/19 12:00 11/12/19 12:00 11/12/19 12:00 11/12/19 12:00 11/12/19 12:00 Laboratory Results - last 24 hr 11/12/19 04:45: Vancomycin Trough 12.9 H I & O for Last 24 hours: Intake & Output 11/10/19 11/11/19 11/12/19 11/13/19 11:59 11:59 11:59 11:59 Intake Total 2953 / 2953 2926 / 2926 Balance 2953 / 2953 2926 / 2926 Weight 175 lb 190 lb 0.016 oz Microbiology Reports for the Last 24 Hours: Microbiology 11/10/19 10:35 Blood Blood Culture - Preliminary NO GROWTH AFTER 48 HOURS 11/10/19 09:52 Blood Blood Culture - Preliminary NO GROWTH AFTER 48 HOURS Internal Medicine - CN: Reslt - Labs CBC & Chem 7: 11/11/19 06:18 11/10/19 10:35 - Imaging and Cardiology CT scan - abdomen Status: final report Assessment and Plan (1) Severe sepsis with acute organ dysfunction Current visit: Yes Status: Acute Category: Medical Code(s): A41.9 - Sepsis, unspecified organism; R65.20 - Severe sepsis without septic shock (2) HCAP (healthcare-associated pneumonia) Current visit: Yes Status: Acute Category: Medical Code(s): J18.9 - Pneumonia, unspecified organism (3) COVID-19 virus IgG antibody detected Current visit: Yes Status: Acute Category: Medical Code(s): Z01.84 - Encounter for antibody response examination (4) Pancreatic mass Current visit: Yes Status: Acute Category: Medical Code(s): K86.89 - Other specified diseases of pancreas (5) Multiple lesions of metastatic malignancy Current visit: Yes Status: Acute Category: Medical Code(s): C79.9 - Secondary malignant neoplasm of unspecified site - Assessment and plan all Dx Assessment and Plan for all problems:: pt with clinical stage IV pancreatic cancer iwth diffuse mets. pt has poor performance status and is not a candidate for chemotherapy. he denies pain. I recommend hospice. I discussed this with the pt and he is agreeable though I am not sure how much he understands. d/w nurse at bedside. Savita Bergeron MD
--- NOTE | 2019-11-12 14:05 | PC.NURSE ---
NEWTON KING CALLED THIS RN TO ASSESS PATIENT'S LEFT ARM. UPON ENTERING THE ROOM, PATIENT'S CHEEKS WERE FLUSHED AND HIS LEFT ARM HAD SWELLED UP. PATIENT'S VANCOMYCIN HAD JUST COMPLETED COURSE. THIS RN STOPPED HIS IV. PHONED PHARMACY AND SPOKE WITH CHIP AND LEFT A MESSAGE WITH NASH AT DR. SHOEMAKER'S OFFICE.
--- NOTE | 2019-11-12 14:11 | PC.NURSE ---
AT 1330 SRNA HANSA KING ASKED THIS RN TO ASSESS PATIENT'S IV. THIS RN ASSESSED THE LEFT ARM AND FOUND PATIENT'S IV HAD INFILTRATED AND HIS ARM WAS EDEMATOUS. THIS RN STOPPED HIS IV AND REMOVED IT. THIS RN APPLIED A WARM COMPRESS TO THE ARM. THIS ARM NOTIFIED CHIP FERGUSON AND LEFT A MESSAGE WITH NASH IN DR. SHOEMAKER'S OFFICE.
--- NOTE | 2019-11-12 19:51 | PC.NURSE ---
PER ELLIE, OKAY FOR PATIENT TO NOT HAVE IV. OKAY TO NOT ADMINISTER IV MEDICATIONS. DR. ELAINE REQUESTS HOSPICE CONSULT. THIS RN CONSULTED WITH YOLIS GLEZ ON WHO DOES HOSPICE REQUEST. PER YOLIS, [facility] CALL[facility]ICE. YOLIS GLEZ SPOKE WITH ANTIONE SIMMONS AND STATED TO THIS RN THAT [facility] DOES NOT WANT PATIENT ON HOSPICE AND THEY WILL BE PROVIDING THEIR OWN COMFORT CARE AND THAT PHYSICIANS ARE ON BOARD. 1530 NEWTON KING INFORMED THIS RN THAT PATIENT HAS NOT HAD A WET BRIEF THUS FAR. THIS RN ASSESSED PATIENTS BLADDER WITH A BLADDER SCANNER. PATIENT'S HIGHEST ABOUT WAS 306. FOR REMAINDER OF SHIFT THIS RN AND HANSA HAS ENCOURAGE PATIENT TO DRINK PLENTY OF WATER. PATIENT VERBALIZED AN UNDERSTANDING. PATIENT ATTEMPTS TO DRINK WHILE LYING DOWN. THIS RN HAS EDUCATED PATIENT ON NUMEROUS OCCASIONS THE IMPORTANCE OF SITTING UP WHEN EATING OR DRINKING SO THAT HE DOES NOT CHOKE OR ASPIRATE. PATIENT VERBALIZED AN UNDERSTANDING.
[2019-11-13 04:00] VITALS: BP 119/69; PULSE 99; RESP 20; TEMP 36.9; O2SAT 92
--- NOTE | 2019-11-13 04:46 | PC.NURSE ---
PT IS ABLE TO STATE NAME, BIRTHDAY, AND YEAR. PT IS DIMISHED THROUGHOUT. PT HAS BEEN ENCOURAGED TO DRINK FLUIDS. PT INCONTINENT OF BLADDER AND HAS HAD BREIF CHANGED NEEDED. RECEIVED BATH AND TOTAL BED CHANGE. PT REPORTS NO PAIN OR NASUEA THIS SHIFT. PT HAS RESTING COMFORTABLY. PT HAS NO IV ACCESS AND UNABLE TO RECIEVE IV ABX'S THIS SHIFT. Taylor KAPOOR WAS NOTIFIED ON .
--- NOTE | 2019-11-13 05:45 | PC.NURSE ---
UNABLE TO OBTAIN PATIENTS WEIGHT
[2019-11-13 07:10] LABS: Basophils # 0.1 K/mm3 (0-0.2); Basophils % 0.7 % (0.1-2.0); Eosinophils # 0.1 K/mm3 (0.0-0.4); Eosinophils % 0.3 % (0.1-12.0); Hematocrit 40.9 % (42.0-52.0); Hemoglobin 13.6 g/dL (14.1-18.0); Lymphocytes # 1.1 K/mm3 (0.7-4.5); Lymphocytes % 5.3 % (10-50); Mean Corpuscular HGB Conc 33.2 g/dL (31.8-35.4); Mean Corpuscular Hemoglobin 32.1 pg (27.0-31.2); Mean Corpuscular Volume 96.7 fl (80-94); Mean Platelet Volume 13.3 fl (7.4-10.4); Monocytes # 1.2 K/mm3 (0.1-1.0); Monocytes % 5.7 % (1.7-9.3); Neutrophils # 18.5 K/mm3 (1.8-7.8); Neutrophils % 88.1 % (37.0-80.0); Platelet Count 160 K/mm3 (142-424); Red Blood Count 4.23 M/mm3 (4.60-6.20); Red Cell Distribution Width 14.9 % (11.5-17.5)
[2019-11-13 07:19] LABS: MANUAL DIFFERENTIAL MANUAL DIFFERENTIAL (MANUAL DIFF)
[2019-11-13 07:25] LABS: Chloride 105 mmol/L (98-107); Sodium 137 mmol/L (136-145)
[2019-11-13 07:26] LABS: Potassium 3.2 mmoL/L (3.5-5.1)
[2019-11-13 07:28] LABS: Blood Urea Nitrogen 15 mg/dl (9-20); Creatinine Clearance Estimated 0 mL/min (50-200); Estimated Glomerular Filt Rate 170 ml/min (>60); GFR (African American) 206 ML/MIN (>60)
[2019-11-13 07:29] LABS: Anion Gap 7.2 mEq/L (5-15); Calcium 9.3 mg/dl (8.4-10.2); Carbon Dioxide 28 mmol/L (22.0-30.0); Glucose 95 mg/dl (74-100)
--- NOTE | 2019-11-13 07:52 | P.PN_ITS ---
Internal Medicine - PN: Subj *Date: 11/13/19 *Time: 07:52 Exam Vital signs and Labs for Last 24 Hours: Temp Pulse Resp BP Pulse Ox 98.4 F 99 H 20 119/69 92 L 11/13/19 04:00 11/13/19 04:00 11/13/19 04:00 11/13/19 04:00 11/13/19 04:00 Laboratory Results - last 24 hr 11/13/19 06:45: WBC 21.0 H*, RBC 4.23 L, Hgb 13.6 L, Hct 40.9 L, MCV 96.7 H, MCH 32.1 H, MCHC 33.2, RDW 14.9, Plt Count 160, MPV 13.3 H, Neut % (Auto) 88.1 H, Lymph % (Auto) 5.3 L, [place] % (Auto) 5.7, Eos % (Auto) 0.3, Baso % (Auto) 0.7, Neut # (Auto) 18.5 H, Lymph # (Auto) 1.1, [place] # (Auto) 1.2 H, Eos # (Auto) 0.1, Baso # (Auto) 0.1 11/13/19 06:45: Sodium 137, Potassium 3.2 L, Chloride 105, Carbon Dioxide 28, Anion Gap 7.2, BUN 15 D, Creatinine 0.50 L D, Estimated Creat Clear 0, Estimated GFR 170, Est GFR ( Amer) 206 D, Glucose 95, Calcium 9.3 I & O for Last 24 hours: Intake & Output 11/10/19 11/11/19 11/12/19 11/13/19 23:59 23:59 23:59 23:59 Intake Total 930 / 930 3713 / 3713 1356 / 1356 140 / 140 Balance 930 / 930 3713 / 3713 1356 / 1356 140 / 140 Weight 86.183 kg 86.183 kg 0 g Microbiology Reports for the Last 24 Hours: Microbiology 11/10/19 10:35 Blood Blood Culture - Preliminary NO GROWTH AFTER 48 HOURS 11/10/19 09:52 Blood Blood Culture - Preliminary NO GROWTH AFTER 48 HOURS Assessment and Plan (1) Severe sepsis with acute organ dysfunction Current visit: Yes Status: Acute Category: Medical Code(s): A41.9 - Sepsis, unspecified organism; R65.20 - Severe sepsis without septic shock (2) HCAP (healthcare-associated pneumonia) Current visit: Yes Status: Acute Category: Medical Code(s): J18.9 - Pneumonia, unspecified organism (3) COVID-19 virus IgG antibody detected Current visit: Yes Status: Acute Category: Medical Code(s): Z01.84 - Encounter for antibody response examination (4) Pancreatic mass Current visit: Yes Status: Acute Category: Medical Code(s): K86.89 - Other specified diseases of pancreas (5) Multiple lesions of metastatic malignancy Current visit: Yes Status: Acute Category: Medical Code(s): C79.9 - Secondary malignant neoplasm of unspecified site The patient's infection will respond to the chosen ABx?: Yes Is the patient receiving the right drug, dose, and route?: Yes Could a more targeted ABx be ordered?: No
[2019-11-13 08:00] VITALS: BP 126/81; PULSE 88; RESP 18; TEMP 36.8; O2SAT 93
--- NOTE | 2019-11-13 08:32 | HMH.DCSUM ---
General - General Admission date:: 11/10/19 Discharge date: 11/13/19 HPI HPI: [facility]m from [facility] -pt had been at [facility] and had cap and went to [facility] and has progressively been more confused at time and dec ambulation and adl- he The patient is brought by ambulance from [facility]. Reportedly he was supposed to have an appointment with Dr. Up today but was found to be weak and diaphoretic and a temperature of 97.1. During transport he is reported to have had a blood pressure in the 80s. The patient seems confused and does not seem to be a good historian. He states he feels a okay and gives me a thumbs up. Denies any pain or difficulty breathing. Denies nausea. He knows he is at the hospital, but does not know which hospital it is. He does not know the year. pt was found to have cap and also prob metastatic disease - pt was admitted with ivf and abx -also found to be covid-19 igg positive - Hospital Course Hospital Course: ct head:FINDINGS: No midline shift, mass effect, intracranial hemorrhage, hydrocephalus, or extra-axial fluid collection is evident. There are periventricular and subcortical areas of decreased attenuation consistent with ischemic gliotic change from microvascular disease. The calvarium has an unremarkable appearance. Focal scalp soft tissue swelling is present in the right temporal area containing some calcifications. This has developed since the previous exam. This measures 1.9 by 1 cm. No sinus air-fluid level. IMPRESSION: 1. No acute intracranial findings. 2. Subcutaneous scalp lesion in the right temporal area which has developed since the previous exam. Please correlate with physical exam. A subcutaneous metastatic focus could have a similar appearance. chest x ray:FINDINGS: The cardiomediastinal silhouette and pulmonary vascularity are within normal limits. Increasing consolidation is present in the right lower lung zone. There may be a right infrahilar mass. Small right pleural effusion has developed. There is persistent nodular density in the left perihilar region at 2 cm with patchy infiltrate in the left midlung. Calcified nodes are present along the aortic arch region. Destructive lesion is present involving the left scapula along the superior aspect of the scapular spine. IMPRESSION: Worsening right lower lobe/right middle lobe consolidation with effusion and possible right infrahilar mass with persistent nodule in the left perihilar region. Destructive lesion left scapula. Recommend chest CT with contrast for further evaluation ct chest: IMPRESSION: 1. 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 2. 6.8 x 4 cm infrahilar mass on the right extending into the right middle lobe. This could be secondary to metastatic disease or could be a 2nd primary malignancy. There is some postobstructive changes distal to this rib area. There is a small to medium-sized right pleural effusion ct abd/pelvis: IMPRESSION: 1. There is a heterogeneous mass in the left upper quadrant which may originate from the pancreatic tail and may represent primary pancreatic malignancy 2. Multiple liver lesions, pulmonary lesions and lytic lesions of the bones consistent with metastatic disease. Soft tissue nodules present along the gluteus medius on the right suspicious for metastatic nodule Laboratory Tests 11/10/19 11/10/19 11/10/19 09:38 09:38 10:20 WBC 29.5 H* RBC 5.21 Hgb 16.6 Hct 49.8 MCV 95.7 H MCH 31.9 H MCHC 33.4 RDW 14.9 Plt Count 266 MPV 14.1 H Neut % (Auto) 90.4 H Lymph % (Auto) 3.5 L [place] % (Auto) 5.3 Eos % (Auto) 0.1 Baso % (Auto) 0.8 Neut # (Auto) 26.7 H Lymph # (Auto)
[2019-11-13 08:47] LABS: Lymphocytes % 7 % (10-50); Monocytes % 14 % (2-9); Neutrophils % 79 % (42-76); Platelet Estimate Normal; RBC Morphology Normal; Total Cells Counted 100
--- NOTE | 2019-11-13 10:42 | PC.NURSE ---
Report called to Marivel Garcia LPN at [facility]
== END 2019-11-13 11:00 | DRG 435 ==
LOC: ER 13:33 → 2ND 11-11 09:38
PROVIDERS: Nurse Practitioner Family; Admitting Provider Emergency Medicine; Emergency Provider Emergency Medicine; PCP Emergency Medicine; Visit Provider Emergency Medicine
DX: C25.2 Malignant neoplasm of tail of pancreas (principal); R65.11 Systemic inflammatory response syndrome (SIRS) of non-infectious origin with acute organ dysfunction; C78.7 Secondary malignant neoplasm of liver and intrahepatic bile duct; C78.00 Secondary malignant neoplasm of unspecified lung; C79.51 Secondary malignant neoplasm of bone; Z86.19 Personal history of other infectious and parasitic diseases
CPT/HCPCS: 36415; 70450; 71045; 71260; 74177; 80048; 80053; 80202; 81001; 83605; 84484; 85007; 85025; 86328; 87040; 87581; 87633; 87798; 93005; 96365; 96367; 99285; J1956; J3370; Q9967